=== PATIENT | male | born 1945 | race Caucasian/White ===

== ENCOUNTER 2019-02-19 10:07 | Inpatient (IN) | payer MEDICARE ==
--- NOTE | 2019-02-19 10:31 | ER Document Report ---
ED Medical Screen (RME) - General Chief Complaint: Abnormal Lab Results Stated Complaint: ABNORMAL LABS Time Seen by Provider: 02/19/19 10:28 Primary Care Provider: WHITNEY ASHLEY MD [Primary Care Provider] - Follow up as needed Mode of Arrival: Wheelchair Information source: Patient Notes: 73-year-old male presented to ED for complaint of abnormal lab work. He states his doctor told him to come to the emergency room get vitamin K as his coags were abnormal at the office. He did not bring a copy of his lab results with him but was told to come to the emergency room to get vitamin K. He does have a history of anemia, blood in his urine, and difficulty stopping bleeding. He is on Coumadin. Patient is alert oriented respirations regular and unlabored speaking in full sentences. He is in a wheelchair at this time. I have greeted and performed a rapid initial assessment of this patient. A comprehensive ED assessment and evaluation of the patient, analysis of test results and completion of medical decision making process will be conducted by an additional ED providers. Dictation of this chart was performed using voice recognition software; t herefore, there may be some unintended grammatical errors. TRAVEL OUTSIDE OF THE [place] IN LAST 30 DAYS: No - Related Data Allergies/Adverse Reactions: adhesive Allergy (Mild, Verified 02/19/19 10:12) Sulfa (Sulfonamide Antibiotics) Allergy (Verified 02/19/19 10:12) Past Medical History - Past Medical History Cardiac Medical History: Reports: Hx Heart Attack, Hx Hypercholesterolemia, Hx Hypertension Psychiatric Medical History: Reports: Hx Bipolar Disorder Past Surgical History: Reports: Hx Appendectomy - Immunizations Hx Diphtheria, Pertussis, Tetanus Vaccination: Yes Physical Exam - Vital signs Vitals: Temp Pulse Resp BP Pulse Ox 98.5 F 64 20 96/55 L 98 02/19/19 10:21 02/19/19 10:02/19/19 10:02/19/19 10:21 02/19/19 10:21 Course - Vital Signs Vital signs: Temp Pulse Resp BP Pulse Ox 98.5 F 64 20 96/55 L 98 02/19/19 10:21 02/19/19 10:21 02/19/19 10:21 02/19/19 10:21 02/19/19 10:21 Doctor's Discharge - Discharge Referrals: WHITNEY ASHLEY MD [Primary Care Provider] - Follow up as needed
[2019-02-19 11:07] LABS: ABSOLUTE BASOPHILS # (AUTO) 0.1 10^3/uL (0.0-0.2); ABSOLUTE EOSINOPHILS # (AUTO) 0.3 10^3/uL (0.0-0.6); ABSOLUTE LYMPHOCYTES (AUTO) 0.6 10^3/uL (0.5-4.7); ABSOLUTE MONOCYTES (AUTO) 0.9 10^3/uL (0.1-1.4); ABSOLUTE NEUT (AUTO) 7.2 10^3/uL (1.7-8.2); BASOPHILS % (AUTO) 0.9 % (0-2); EOSINOPHILS % (AUTO) 2.9 % (0-6); HEMATOCRIT 32.8 % (37.9-51.0); HEMOGLOBIN 11.1 g/dL (13.5-17.0); LYMPHOCYTES % (AUTO) 6.8 % (13-45); MEAN CORPUSCULAR HGB CONC 33.8 g/dL (32.0-36.0); MEAN CORPUSCULAR VOLUME 86 fl (80-97); MONOCYTES % (AUTO) 9.9 % (3-13); PLATELET COUNT 110 10^3/uL (150-450); RED BLOOD COUNT 3.82 10^6/uL (4.35-5.55); RED CELL DISTRIBUTION WIDTH 14.9 % (11.5-14.0); SEGMENTED NEUTROPHILS % (AUTO) 79.5 % (42-78); TOTAL CELLS COUNTED % (AUTO) 100 %; WHITE BLOOD COUNT 9.1 10^3/uL (4.0-10.5)
[2019-02-19 11:32] LABS: ALANINE AMINOTRANSFERASE 25 U/L (21-72); ALBUMIN 3.7 g/dL (3.5-5.0); ALKALINE PHOSPHATASE 65 U/L (38-126); ANION GAP 5 (5-19); ASPARTATE AMINO TRANSFERASE 27 U/L (17-59); BILIRUBIN,DIRECT 0.4 mg/dL (0.0-0.4); BLOOD UREA NITROGEN 18 mg/dL (7-20); CALCIUM 9.5 mg/dL (8.4-10.2); CARBON DIOXIDE 28 mmol/L (22-30); CHLORIDE 106 mmol/L (98-107); GLUCOSE 116 mg/dL (75-110); POTASSIUM 4.6 mmol/L (3.6-5.0); SODIUM 138.8 mmol/L (137-145); TOTAL PROTEIN 6.8 g/dL (6.3-8.2)
[2019-02-19 11:50] LABS: PARTIAL THROMBOPLASTIN TIME 168.3 SEC (23.5-35.8); PROTHROMBIN TIME > 120.0 SEC (11.4-15.4)
[2019-02-19 12:18] LABS: APPEARANCE,URINE CLOUDY; BILIRUBIN,URINE NEGATIVE (NEGATIVE); COLOR,URINE RED; GLUCOSE, URINE NEGATIVE (NEGATIVE); KETONES,URINE NEGATIVE (NEGATIVE); LEUKOCYTE ESTERASE,URINE NEGATIVE (NEGATIVE); NITRITE,URINE NEGATIVE (NEGATIVE); PROTEIN,URINE 100 mg/dL (NEGATIVE); URINE SPECIFIC GRAVITY 1.011; UROBILINOGEN,URINE NEGATIVE mg/dL (<2.0)
[2019-02-19] MEDS ORDERED: ACETAMINOPHEN 650 MG SUPP.RECT PR PRN (14:04)
[2019-02-19] MEDS ORDERED: ONDANSETRON HCL INJ/PF 4 MG/2 ML SDV IV PRN (14:04)
[2019-02-19] MEDS ORDERED: NORMAL SALINE 250 ML IV PRN ×2 (14:09)
--- NOTE | 2019-02-19 14:22 | PDOC H&P ---
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 Blood draw was done at his primary care physician yesterday and is continued to bleed from there and the PCP called him back told him they unable to make sure the INR and he was advised to come to the emergency room for further evaluation. He denies any passing blood in the stool. He denies any hematemesis. Denies any chest pains or palpitations. Last dose of warfarin was taken last night. Past Medical History Cardiac Medical History: Reports: Myocardial Infarction, Hyperlipidema, Hyperten christian, Other - History of pacemaker Psychiatric Medical History: Reports: Bipolar Disorder Past Surgical History Past Surgical History: Reports: Appendectomy Social History Information Source: Patient Smoking Status: Unknown if Ever Smoked Frequency of Alcohol Use: None Hx Recreational Drug Use: No Hx Prescription Drug Abuse: No - Advance Directive Resuscitation Status: Full Code Family History Family History: Reviewed & Not Pertinent Parental Family History Reviewed: Yes - Family history of heart disease Children Family History Reviewed: Yes Sibling(s) Family History Reviewed.: Yes Medication/Allergy Home Medications: Aspirin [Ecotrin 325 mg EC Tablet] 325 mg PO DAILY #30 tabec 04/11/14 Bumetanide [Bumex 1 mg Tablet] 1 mg PO DAILY #30 tablet 04/11/14 Carvedilol [Coreg 3.125 mg Tablet] 3.125 mg PO Q12 #60 tablet 04/11/14 Potassium Chloride [Klor-Con 10 Meq Capsule ER] 20 meq PO DAILY #30 tablet.sa 04/11/14 Hydrocodone Bit/Acetaminophen [Hydrocodon-Acetaminophen 5-325] 1 each PO ASDIR PRN #15 tablet 06/03/15 Allergies/Adverse Reactions: adhesive Allergy (Mild, Verified 02/19/19 10:12) Sulfa (Sulfonamide Antibiotics) Allergy (Verified 02/19/19 10:12) Review of Systems Constitutional: ABSENT: fatigue, fever(s), headache(s), night sweats, weakness Eyes: ABSENT: visual disturbances Ears: ABSENT: hearing changes Nose, Mouth, and Throat: ABSENT: sore throat Cardiovascular: ABSENT: dyspnea on exertion, orthropnea, palpitations Respiratory: ABSENT: cough, hemoptysis, sputum Gastrointestinal: ABSENT: abdominal pain, diarrhea, dysphagia, heartburn, hem atemesis, hematochezia, melena, nausea, vomiting Genitourinary: PRESENT: hematuria Neurological: ABSENT: abnormal gait, abnormal speech, confusion, dizziness, focal weakness, syncope Psychiatric: ABSENT: anxiety, depression, homidical ideation, suicidal ideation Physical Exam Vital Signs: Temp Pulse Resp BP Pulse Ox 98.5 F 64 22 H 108/60 100 02/19/19 10:21 02/19/19 10:21 02/19/19 11:01 02/19/19 11:01 02/19/19 11:01 Intake & Output 02/18/19 02/19/19 02/20/19 06:59 06:59 06:59 Weight 65.7 kg General appearance: PRESENT: no acute distress, thin Head exam: PRESENT: atraumatic Eye exam: PRESENT: PERRLA Ear exam: PRESENT: normal external ear exam Mouth exam: PRESENT: dry mucosa Teeth exam: PRESENT: poor dentation Neck exam: ABSENT: carotid bruit, JVD, lymphadenopathy, thyromegaly Respiratory exam: PRESENT: decreased breath sounds Cardiovascular exam: PRESENT: irregular rhythm, other - Pacemaker present left side of the chest GI/Abdominal exam: PRESENT: normal bowel sounds, soft. ABSENT: distended, guarding, mass, organolmegaly, rebound, tenderness Rectal exam: PRESENT: deferred Extremities exam: PRESENT: full ROM. ABSENT: calf tenderness, clubbing, pedal edema Neurological exam: PRESENT: alert, awake, oriented to person, oriented to place, oriented to time, oriented to situation, CN II-XII grossly intact. ABSENT: motor sensory deficit Psychiatric exam: PRESENT: appropriate affect, normal mood. ABSENT: homicidal ideation, suicidal ideation Results Laboratory Results: 02/19/19 10:55 02/19/19 10:55 02/19/19 02/19/19 02/19/19 10:55 10:55 11:48 WBC 9.1 RBC 3.82 L Hgb 11.1 L Hct 32.8 L MCV 86 MCH 29.0 MCHC 33.8 RDW 14.9 H Plt Count 110 L Seg Neutrophils % 79.5 H Lymphocytes % 6.8 L Monocytes % 9.9 Eosinophils % 2.9 Basophils % 0.9 Absolute Neutrophils 7.2 Absolute Lymphocytes 0.6 Absolute Monocytes 0.9 Absolute Eosinophils 0.3 Absolute Basophils 0.1 Sodium 138.8 Potassium 4.6 Chloride 106 Carbon Dioxide 28 Anion Gap 5 BUN 18 Creatinine 1.26 H Est GFR ( Amer) > 60 Est GFR (Non-Af Amer) 56 L Glucose 116 H Calcium 9.5 Total Bilirubin 2.0 H AST 27 ALT 25 Alkaline Phosphatase 65 Total Protein 6.8 Albumin 3.7 Urine Color RED Urine Appearance CLOUDY Urine pH 7.0 Ur Specific Loco 1.011 Urine Protein 100 H Urine Glucose (UA) NEGATIVE Urine Ketones NEGATIVE Urine Blood LARGE H Urine Nitrite NEGATIVE Ur Leukocyte Esterase NEGATIVE Urine RBC (Auto) >182 Assessment and Plan - Diagnosis (1) Coumadin toxicity Is this a current diagnosis for this admission?: Yes Plan: 02/19/[id number]-wdck-old male on Coumadin 4 mg daily came to the emergency room with complaints of passing tea colored/bright red-colored urine from yesterday. PTT is more than 160. INR is unmeasurable. Hemoglobin is stable around 11.1. Plan to admit him IMCU as an inpatient to give a vitamin K 10 mg grams subcu, and to give her 2 FFP's. To that she recheck PT/INR around 5 PM today. GI prophylaxis was initiated placed on SCDs. Aspiration fall seizure precautions are requested. To watch for the signs of hematuria melena and hematemesis. To hold his at home Coumadin for now. To check PT/INR twice a day for the next 48 hours. (2) Hypertension Is this a current diagnosis for this admission?: No Plan: 02/19/2019-pressure is 108/68 with heart rate is around 74 plan is to continue Coreg at this time. (3) Pacemaker Is this a current diagnosis for this admission?: No Plan: 02/19/2019-patient has a pacemaker placed 5 years ago. According to him it is because the heart muscle was damaged. Patient is a poor historian. Plan to do the twelve-lead EKG. If necessary we are going to get in touch with [facility]. (4) Bipolar 1 disorder, depressed, mild Is this a current diagnosis for this admission?: No Plan: 02/13/2017-patient has history of bipolar disorder once his home medications are verified I am going to renew those medications during the hospital stay. (5) Hematuria Is this a current diagnosis for this admission?: Yes Plan: 02/19/2019-patient with came in with complaints of tea colored urine then became bright red-colored urine from last night. Hematuria most likely secondary to Coumadin toxicity. Urinalysis shows blood is large RBCs more than 182.. - Time Time Spent with patient: 25-34 minutes Medications reviewed and adjusted accordingly: Yes Anticipated discharge: Home
[2019-02-19] MEDS ORDERED: PHYTONADIONE INJ 10 MG/1 ML AMPULE SUBCUT ONE (15:00)
[2019-02-19] MEDS: PANTOPRAZOLE SODIUM 40 MG TABLET.DR PO SCH (17:21)
[2019-02-19 17:39] LABS: CREATINE KINASE MB 1.48 ng/mL (<4.55); TROPONIN I 0.022 ng/mL
[2019-02-19 17:58] LABS: CREATINE KINASE MB 1.05 ng/mL (<4.55); TROPONIN I 0.023 ng/mL
[2019-02-19 18:46] LABS: PROTHROMBIN TIME > 120.0 SEC (11.4-15.4)
[2019-02-19] MEDS ORDERED: PHYTONADIONE 5 MG TABLET PO ONE (19:00)
--- NOTE | 2019-02-19 19:05 | ER Document Report ---
ED General - General Chief Complaint: Abnormal Lab Results Stated Complaint: ABNORMAL LABS Time Seen by Provider: 02/19/19 10:28 Mode of Arrival: Wheelchair Notes: Patient was told to come to this emergency department because his blood thinner was too high and he needed to get vitamin K to counteract that problem. Patient is on Coumadin because he has a pacemaker. Patient only complains of noting what looks like some blood in his urine for the past 3 to 4 days. Denies any rectal bleeding. Has not vomited. Patient is not on any new medications recently. Also, does not change the dosage of his medication or anything else. Denies any abdominal pains. Denies chest pains. Denies significant cough or chest congestion. Denies fever. Patient has a history of t pacemaker. TRAVEL OUTSIDE OF THE [place] IN LAST 30 DAYS: No - Related Data Allergies/Adverse Reactions: adhesive Allergy (Mild, Verified 02/19/19 10:12) Sulfa (Sulfonamide Antibiotics) Allergy (Verified 02/19/19 10:12) Past Medical History - General Information source: Patient - Social History Smoking Status: Unknown if Ever Smoked Chew tobacco use (# tins/day): No Frequency of alcohol use: None Drug Abuse: None Family History: Reviewed & Not Pertinent Patient has suicidal ideation: No Patient has homicidal ideation: No - Past Medical History Cardiac Medical History: Reports: Hx Heart Attack, Hx Hypercholesterolemia, Hx Hypertension, Other - History of pacemaker Psychiatric Medical History: Reports: Hx Bipolar Disorder Past Surgical History: Reports: Hx Appendectomy, Hx Cardiac Surgery - pacemaker - Immunizations Hx Diphtheria, Pertussis, Tetanus Vaccination: Yes Hx Pneumococcal Vaccination: 04/11/14 Review of Systems - Review of Systems Notes: REVIEW OF SYSTEMS: CONSTITUTIONAL : Denies fever. EENT: Denies eye, ear, nose or mouth or throat pain or other symptoms. CARDIOVASCULAR: Denies chest pain. RESPIRATORY: Denies cough, chest congestion, or shortness of breath. GASTROINTESTINAL: Denies abdominal pain or nausea, vomiting, or diarrhea. GENITOURINARY: Denies difficulty or painful urinating, urinary frequency, Only complaining of seeing blood in his urine the last 3 to 4 days.. MUSCULOSKELETAL: Denies back or neck pain. Denies joint pain or swelling. SKIN: Denies rash or skin lesions. Patient has many bruised areas all over his body. No active bleeding noted at this time. NEUROLOGICAL: Denies LOC or altered mental status. Denies headache. Denies sensory loss or motor deficits. ALL OTHER SYSTEMS REVIEWED AND NEGATIVE. Physical Exam - Vital signs Vitals: Temp Pulse Resp BP Pulse Ox 98.5 F 64 20 96/55 L 98 02/19/19 10:21 02/19/19 10:21 02/19/19 10:21 02/19/19 10:21 02/19/19 10:21 Interpretation: Normal Notes: PHYSICAL EXAMINATION: GENERAL: Well-appearing, in no acute distress. No bleeding observed. Except patient's urine culture was positive for blood. HEAD: Atraumatic, normocephalic. EYES: Pupils equal round and reactive to light, extraocular movements intact. ENT: oropharynx clear without exudates. Moist mucous membranes. NECK: Normal range of motion, supple. LUNGS: Breath sounds clear and equal bilaterally. HEART: Regular rate and rhythm without murmurs. ABDOMEN: Soft, nontender. No guarding or rebound. No masses. BACK: No tenderness throughout entire back. EXTREMITIES: Normal range of motion without pain. NEUROLOGICAL: Normal speech, normal gait. Normal sensory, motor, and reflex exams. Awake, alert, and oriented x3. Cranial nerves normal. PSYCH: Normal mood, normal affect. SKIN: Warm, dry, no rashes. Numerous bruised areas over patient's entire body. Course - Vital Signs Vital signs: Temp Pulse Resp BP Pulse Ox 98.1 F 69 16 106/67 96 02/20/19 08:00 02/20/19 08:00 02/20/19 10:10 02/20/19 10:10 02/20/19 10:10 02/19/19 19:08 Patient's blood was so thin that her pro time could not be measured. INR is not calculable. 02/19/19 19:08 Hospitalist called to admit the patient to treat her for her over for anticoagulation. - Laboratory Result Diagrams: 02/20/19 05:18 02/20/19 05:18 Laboratory results interpreted by me: 02/19/19 02/19/19 02/19/19 10:55 10:55 10:55 RBC 3.82 L Hgb 11.1 L Hct 32.8 L RDW 14.9 H Plt Count 110 L Seg Neutrophils % 79.5 H Lymphocytes % 6.8 L PT > 120.0 H* APTT 168.3 H* Creatinine 1.26 H Est GFR (Non-Af Amer) 56 L Glucose 116 H Total Bilirubin 2.0 H Creatine Kinase Urine Protein Urine Blood 02/19/19 02/19/19 10:55 11:48 RBC Hgb Hct RDW Plt Count Seg Neutrophils % Lymphocytes % PT APTT Creatinine Est GFR (Non-Af Amer) Glucose Total Bilirubin Creatine Kinase 206 H Urine Protein 100 H Urine Blood LARGE H Discharge - Discharge Clinical Impression: Excessive anticoagulation, Coumadin toxicity, Abnormal laboratory test result Condition: Stable Disposition: ADMITTED INPATIENT Admitting Provider: Magali (Hospitalist)
--- NOTE | 2019-02-19 23:00 | EKG REPORT ---
SEVERITY:- ABNORMAL ECG - A-V DUAL-PACED RHYTHM WITH SOME INHIBITION : Confirmed by: Brenton Phelps 19-Feb-2019 22:58:55
[2019-02-20] MEDS ORDERED: PHYTONADIONE 5 MG TABLET PO ONE (00:45)
[2019-02-20] MEDS ORDERED: PHYTONADIONE 5 MG TABLET ONE (01:02)
[2019-02-20 01:43] LABS: CREATINE KINASE MB 0.79 ng/mL (<4.55); TROPONIN I 0.025 ng/mL
[2019-02-20] MEDS: PANTOPRAZOLE SODIUM 40 MG TABLET.DR PO SCH ×2 (05:57→17:23)
[2019-02-20 06:03] LABS: ABSOLUTE BASOPHILS # (AUTO) 0.1 10^3/uL (0.0-0.2); ABSOLUTE EOSINOPHILS # (AUTO) 0.4 10^3/uL (0.0-0.6); ABSOLUTE LYMPHOCYTES (AUTO) 1.2 10^3/uL (0.5-4.7); ABSOLUTE MONOCYTES (AUTO) 0.9 10^3/uL (0.1-1.4); ABSOLUTE NEUT (AUTO) 5.9 10^3/uL (1.7-8.2); BASOPHILS % (AUTO) 0.7 % (0-2); EOSINOPHILS % (AUTO) 4.2 % (0-6); HEMATOCRIT 27.1 % (37.9-51.0); LYMPHOCYTES % (AUTO) 13.9 % (13-45); MEAN CORPUSCULAR HEMOGLOBIN 28.5 pg (27.0-33.4); MEAN CORPUSCULAR HGB CONC 33.3 g/dL (32.0-36.0); MEAN CORPUSCULAR VOLUME 86 fl (80-97); MONOCYTES % (AUTO) 11.2 % (3-13); RED BLOOD COUNT 3.16 10^6/uL (4.35-5.55); RED CELL DISTRIBUTION WIDTH 14.8 % (11.5-14.0); TOTAL CELLS COUNTED % (AUTO) 100 %; WHITE BLOOD COUNT 8.5 10^3/uL (4.0-10.5)
[2019-02-20 06:21] LABS: PARTIAL THROMBOPLASTIN TIME 83.7 SEC (23.5-35.8)
[2019-02-20 06:24] LABS: ALANINE AMINOTRANSFERASE 22 U/L (21-72); ALBUMIN 2.8 g/dL (3.5-5.0); ALKALINE PHOSPHATASE 43 U/L (38-126); ANION GAP 6 (5-19); ASPARTATE AMINO TRANSFERASE 19 U/L (17-59); BILIRUBIN,DIRECT 0.3 mg/dL (0.0-0.4); BILIRUBIN,TOTAL 2.1 mg/dL (0.2-1.3); BLOOD UREA NITROGEN 16 mg/dL (7-20); CALCIUM 8.6 mg/dL (8.4-10.2); CARBON DIOXIDE 25 mmol/L (22-30); CHLORIDE 107 mmol/L (98-107); CHOLESTEROL 110.93 mg/dL (0-200); GLUCOSE 93 mg/dL (75-110); POTASSIUM 4.2 mmol/L (3.6-5.0); SODIUM 137.5 mmol/L (137-145); TOTAL PROTEIN 5.3 g/dL (6.3-8.2); TRIGLYCERIDES 64 mg/dL (<150)
[2019-02-20 06:30] LABS: INTERNATIONAL RATION (INR) 4.02
[2019-02-20 06:35] LABS: DIRECT LDL 74 mg/dL (<100)
[2019-02-20 06:55] LABS: PROTHROMBIN TIME 40.1 SEC (11.4-15.4)
[2019-02-20 07:12] LABS: PLATELET COUNT 97 10^3/uL (150-450)
[2019-02-21 03:52] LABS: HEMATOCRIT 28.1 % (37.9-51.0); HEMOGLOBIN 9.6 g/dL (13.5-17.0); MEAN CORPUSCULAR HEMOGLOBIN 29.3 pg (27.0-33.4); MEAN CORPUSCULAR VOLUME 86 fl (80-97); PLATELET COUNT 104 10^3/uL (150-450); RED BLOOD COUNT 3.26 10^6/uL (4.35-5.55); RED CELL DISTRIBUTION WIDTH 14.9 % (11.5-14.0)
[2019-02-21 03:58] LABS: INTERNATIONAL RATION (INR) 2.52; PROTHROMBIN TIME 27.7 SEC (11.4-15.4)
[2019-02-21 03:59] LABS: PARTIAL THROMBOPLASTIN TIME 66.8 SEC (23.5-35.8)
[2019-02-21 04:12] LABS: ANION GAP 7 (5-19); BLOOD UREA NITROGEN 15 mg/dL (7-20); CALCIUM 8.7 mg/dL (8.4-10.2); CARBON DIOXIDE 24 mmol/L (22-30); CHLORIDE 106 mmol/L (98-107); GLUCOSE 116 mg/dL (75-110); POTASSIUM 4.2 mmol/L (3.6-5.0)
[2019-02-21] MEDS: PANTOPRAZOLE SODIUM 40 MG TABLET.DR PO SCH ×2 (05:02→18:23)
--- NOTE | 2019-02-21 06:35 | PDOC PROGRESS REPORT ---
Subjective Progress Note for:: 02/20/19 Subjective:: Patient is feeling better. Still with large ecchymotic areas on shoulder and arms. Reason For Visit: COUMADIN TOXICITY Physical Exam Vital Signs: Temp Pulse Resp BP Pulse Ox 97.8 F 72 25 H 100/86 H 98 02/20/19 12:00 02/20/19 12:00 02/20/19 12:00 02/20/19 12:00 02/20/19 12:00 Intake & Output 02/19/19 02/20/19 02/21/19 06:59 06:59 06:59 Intake Total 888 Output Total 620 550 Balance 268 -550 Weight 64.5 kg General appearance: PRESENT: no acute distress, cooperative, well-developed Head exam: PRESENT: atraumatic, normocephalic Eye exam: PRESENT: conjunctiva pink. ABSENT: scleral icterus Ear exam: PRESENT: normal external ear exam Mouth exam: PRESENT: dry mucosa, tongue midline Respiratory exam: PRESENT: clear to auscultation [place], symmetrical, unlabored. ABSENT: rales, rhonchi, tachypnea, wheezes Cardiovascular exam: PRESENT: RRR, +S1, +S2. ABSENT: diastolic murmur, systolic murmur GI/Abdominal exam: PRESENT: normal bowel sounds, soft. ABSENT: distended, tenderness Rectal exam: PRESENT: deferred Gentrourinary exam: ABSENT: indwelling catheter Extremities exam: PRESENT: pedal edema. ABSENT: calf tenderness Musculoskeletal exam: PRESENT: ambulatory Neurological exam: PRESENT: alert, awake, oriented to person, oriented to place, oriented to time, oriented to situation, CN II-XII grossly intact Psychiatric exam: PRESENT: flat affect. ABSENT: agitated, anxious Focused psych exam: ABSENT: delusional, restlessness Results Laboratory Results: 02/20/19 05:18 02/20/19 05:18 02/19/19 02/20/19 02/20/19 14:45 05:18 05:18 WBC 8.5 RBC 3.16 L Hgb 9.0 L D Hct 27.1 L MCV 86 MCH 28.5 MCHC 33.3 RDW 14.8 H Plt Count 97 L Seg Neutrophils % 70.0 Lymphocytes % 13.9 Monocytes % 11.2 Eosinophils % 4.2 Basophils % 0.7 Absolute Neutrophils 5.9 Absolute Lymphocytes 1.2 Absolute Monocytes 0.9 Absolute Eosinophils 0.4 Absolute Basophils 0.1 Sodium 137.5 Potassium 4.2 Chloride 107 Carbon Dioxide 25 Anion Gap 6 BUN 16 Creatinine 1.06 Est GFR ( Amer) > 60 Est GFR (Non-Af Amer) > 60 Glucose 93 Calcium 8.6 Magnesium 1.5 L Total Bilirubin 2.1 H AST 19 ALT 22 Alkaline Phosphatase 43 Total Protein 5.3 L Albumin 2.8 L Triglycerides 64 Cholesterol 110.93 LDL Cholesterol Direct 74 VLDL Cholesterol 13.0 HDL Cholesterol 36 L TSH Blood Type O POSITIVE 02/20/19 05:18 WBC RBC Hgb Hct MCV MCH MCHC RDW Plt Count Seg Neutrophils % Lymphocytes % Monocytes % Eosinophils % Basophils % Absolute Neutrophils Absolute Lymphocytes Absolute Monocytes Absolute Eosinophils Absolute Basophils Sodium Potassium Chloride Carbon Dioxide Anion Gap BUN Creatinine Est GFR ( Amer) Est GFR (Non-Af Amer) Glucose Calcium Magnesium Total Bilirubin AST ALT Alkaline Phosphatase Total Protein Albumin Triglycerides Cholesterol LDL Cholesterol Direct VLDL Cholesterol HDL Cholesterol TSH 1.29 Blood Type 02/19/19 02/19/19 02/19/19 10:55 10:55 17:12 Creatine Kinase 206 H 136 CK-MB (CK-2) 1.48 Troponin I 0.022 NT-Pro-B Natriuret Pep 02/19/19 02/20/19 02/20/19 17:12 01:07 01:07 Creatine Kinase 109 CK-MB (CK-2) 1.05 0.79 Troponin I 0.023 0.025 NT-Pro-B Natriuret Pep 02/20/19 05:18 Creatine Kinase CK-MB (CK-2) Troponin I NT-Pro-B Natriuret Pep 5890 H Assessment and Plan - Diagnosis (1) Coumadin toxicity Is this a current diagnosis for this admission?: Yes Plan: 02/19/[id number]-yfns-old male on Coumadin 4 mg daily came to the emergency room with complaints of passing tea colored/bright red-colored urine from yesterday. PTT is more than 160. INR is unmeasurable. Hemoglobin is stable around 11.1. Plan to admit him IMCU as an inpatient to give a vitamin K 10 mg grams subcu, and to give her 2 FFP's. To that she recheck PT/INR around 5 PM today. GI prophylaxis was initiated placed on SCDs. Aspiration fall seizure precautions are requested. To watch for the signs of hematuria melena and hematemesis. To hold his at home Coumadin for now. To check PT/INR twice a day for the next 48 hours. 02/20/2019-after our multidisciplinary rounds this morning I will pharmacy contacted the patient's primary provider who monitors the Coumadin. They state that the patient has labile INR results. This could be due to a compliance issue. His INR is improved after fresh frozen plasma. At this point I do not feel that he needs additional fresh frozen plasma. Based on his INR he may or may not be started back on warfarin prior to discharge but I did ask the staff to make an appointment with his primary care provider for Saturday or Saturday. (2) Excessive anticoagulation Is this a current diagnosis for this admission?: Yes Plan: 02/12/2019-it is unclear if there was a dosing error since the patient has different strength tablets of the warfarin at home. With this episode, he might benefit from home health to monitor the warfarin dosing for the first week or 2 after discharge. (3) Hypomagnesemia Is this a current diagnosis for this admission?: Yes Plan: 02/20/2019-replete serum magnesium. (4) Hypercholesterolemia Is this a current diagnosis for this admission?: Yes Plan: 02/20/2019-continue atorvastatin - Time Time Spent with patient: 15-24 minutes Medications reviewed and adjusted accordingly: Yes Anticipated discharge: Home
[2019-02-21] MEDS: MAGNESIUM SULFATE/D5W 1 GM/100 ML RTUPB IV SCH ×2 (09:23→11:43)
[2019-02-21] MEDS ORDERED: MAGNESIUM OXIDE 400 MG TABLET PO SCH ×2 (10:00→18:00)
[2019-02-21] MEDS ORDERED: CARVEDILOL 12.5 MG TABLET PO SCH (10:00)
[2019-02-21] MEDS ORDERED: MAGNESIUM SULFATE/D5W 1 GM/100 ML RTUPB IV ONE (11:41)
--- NOTE | 2019-02-21 16:32 | PDOC PROGRESS REPORT ---
Subjective Progress Note for:: 02/21/19 Subjective:: The patient's son Arik is present in the room. He is the power of commercial attorney and has a copy of the documents. Reason For Visit: COUMADIN TOXICITY Physical Exam Vital Signs: Temp Pulse Resp BP Pulse Ox 98.4 F 91 16 128/82 H 99 02/21/19 14:11 02/21/19 07:46 02/21/19 14:11 02/21/19 14:11 02/21/19 14:11 Intake & Output 02/20/19 02/21/19 02/22/19 06:59 06:59 06:59 Intake Total 888 1775 100 Output Total 620 1050 Balance 268 725 100 Weight 64.5 kg 66.9 kg General appearance: PRESENT: no acute distress, cooperative, well-developed Head exam: PRESENT: atraumatic, normocephalic Eye exam: PRESENT: conjunctiva pink. ABSENT: scleral icterus Ear exam: PRESENT: normal external ear exam Mouth exam: PRESENT: dry mucosa, tongue midline Respiratory exam: PRESENT: clear to auscultation [place], symmetrical, unlabored. ABSENT: rales, rhonchi, tachypnea, wheezes Cardiovascular exam: PRESENT: irregular rhythm - Underlying paced rhythm with irregular beats GI/Abdominal exam: PRESENT: normal bowel sounds, soft. ABSENT: distended, tenderness Rectal exam: PRESENT: deferred Gentrourinary exam: PRESENT: other - Still with tea colored urine Extremities exam: ABSENT: calf tenderness, pedal edema Musculoskeletal exam: PRESENT: normal inspection Neurological exam: PRESENT: alert, awake, oriented to person, oriented to place, oriented to situation Psychiatric exam: PRESENT: flat affect. ABSENT: agitated, anxious Focused psych exam: ABSENT: delusional, restlessness Skin exam: PRESENT: other - Ecchymotic lesions Results Laboratory Results: 02/21/19 03:29 02/21/19 03:29 02/21/19 02/21/19 03:29 03:29 WBC 11.0 H RBC 3.26 L Hgb 9.6 L Hct 28.1 L MCV 86 MCH 29.3 MCHC 34.0 RDW 14.9 H Plt Count 104 L Sodium 137.0 Potassium 4.2 Chloride 106 Carbon Dioxide 24 Anion Gap 7 BUN 15 Creatinine 0.91 Est GFR ( Amer) > 60 Est GFR (Non-Af Amer) > 60 Glucose 116 H Calcium 8.7 Magnesium 1.4 L 02/19/19 02/19/19 02/19/19 10:55 10:55 17:12 Creatine Kinase 206 H 136 CK-MB (CK-2) 1.48 Troponin I 0.022 NT-Pro-B Natriuret Pep 02/19/19 02/20/19 02/20/19 17:12 01:07 01:07 Creatine Kinase 109 CK-MB (CK-2) 1.05 0.79 Troponin I 0.023 0.025 NT-Pro-B Natriuret Pep 02/20/19 05:18 Creatine Kinase CK-MB (CK-2) Troponin I NT-Pro-B Natriuret Pep 5890 H Assessment and Plan - Diagnosis (1) Coumadin toxicity Is this a current diagnosis for this admission?: Yes Plan: [birth year][id number]-mdhj-old male on Coumadin 4 mg daily came to the emergency room with complaints of passing tea colored/bright red-colored urine from yesterday. PTT is more than 160. INR is unmeasurable. Hemoglobin is stable around 11.1. Plan to admit him IMCU as an inpatient to give a vitamin K 10 mg grams subcu, and to give her 2 FFP's. To that she recheck PT/INR around 5 PM today. GI prophylaxis was initiated placed on SCDs. Aspiration fall seizure precautions are requested. To watch for the signs of hematuria melena and hematemesis. To hold his at home Coumadin for now. To check PT/INR twice a day for the next 48 hours. 02/20/2019-after our multidisciplinary rounds this morning I will pharmacy contacted the patient's primary provider who monitors the Coumadin. They state that the patient has labile INR results. This could be due to a compliance issue. His INR is improved after fresh frozen plasma. At this point I do not feel that he needs additional fresh frozen plasma. Based on his INR he may or may not be started back on warfarin prior to discharge but I did ask the staff to make an appointment with his primary care provider for Saturday or Saturday. 02/21/2019-his INR is under 3. Because he has vitamin K on board I will resume warfarin at 3 mg daily. We will take at least several days before it should have full effect. We will continue to monitor his urine and stool for blood as well as his hemoglobin. He may need home health to help monitor medications or [facility]. We will obtain a PT consult. (2) Excessive anticoagulation Is this a current diagnosis for this admission?: Yes Plan: 02/20/2019-it is unclear if there was a dosing error since the patient has different strength tablets of the warfarin at home. With this episode, he might benefit from home health to monitor the warfarin dosing for the first week or 2 after discharge. 02/21/2019-INR is back in the therapeutic range. Most likely scenario is that the patient accidentally took too much Coumadin. It appears that he is still clearing old blood from his kidneys. (3) Hypomagnesemia Is this a current diagnosis for this admission?: Yes Plan: 02/20/2019-replete serum magnesium. Despite starting magnesium oxide. Serum magnesium is still low. Will give magnesium sulfate by IV and then increase the magnesium oxide dosing to twice daily. (4) Hypercholesterolemia Is this a current diagnosis for this admission?: Yes Plan: 02/20/2019-continue atorvastatin 02/21/2019-no change in the treatment plan. - Time Time Spent with patient: 15-24 minutes Medications reviewed and adjusted accordingly: Yes Anticipated discharge: Other - Unsure at this time. He may require skilled facility short-term.
[2019-02-21] MEDS ORDERED: MAGNESIUM SULFATE/D5W 1 GM/100 ML RTUPB IV SCH (17:00)
[2019-02-21] MEDS: ATORVASTATIN CALCIUM 10 MG TABLET PO SCH (21:19)
[2019-02-21] MEDS: CARVEDILOL 12.5 MG TABLET PO SCH (21:19)
[2019-02-21] MEDS: WARFARIN SODIUM 3 MG TABLET PO SCH (21:23)
[2019-02-22 03:30] LABS: HEMATOCRIT 29.8 % (37.9-51.0); HEMOGLOBIN 9.9 g/dL (13.5-17.0); MEAN CORPUSCULAR HEMOGLOBIN 28.5 pg (27.0-33.4); MEAN CORPUSCULAR HGB CONC 33.2 g/dL (32.0-36.0); MEAN CORPUSCULAR VOLUME 86 fl (80-97); PLATELET COUNT 127 10^3/uL (150-450); RED BLOOD COUNT 3.48 10^6/uL (4.35-5.55); RED CELL DISTRIBUTION WIDTH 15.1 % (11.5-14.0); WHITE BLOOD COUNT 13.1 10^3/uL (4.0-10.5)
[2019-02-22 03:47] LABS: ANION GAP 8 (5-19); BLOOD UREA NITROGEN 17 mg/dL (7-20); CALCIUM 8.6 mg/dL (8.4-10.2); CARBON DIOXIDE 23 mmol/L (22-30); CHLORIDE 100 mmol/L (98-107); GLUCOSE 111 mg/dL (75-110); SODIUM 131.3 mmol/L (137-145)
[2019-02-22] MEDS: PANTOPRAZOLE SODIUM 40 MG TABLET.DR PO SCH ×2 (05:09→18:10)
[2019-02-22] MEDS: MAGNESIUM SULFATE/D5W 1 GM/100 ML RTUPB IV SCH ×2 (09:00→14:29)
[2019-02-22] MEDS: CARVEDILOL 12.5 MG TABLET PO SCH ×2 (09:10→21:06)
[2019-02-22] MEDS: MAGNESIUM OXIDE 400 MG TABLET PO SCH ×3 (09:10→18:10)
[2019-02-22] MEDS ORDERED: MAGNESIUM SULFATE/D5W 1 GM/100 ML RTUPB IV ONE (14:26)
[2019-02-22] MEDS: ATORVASTATIN CALCIUM 10 MG TABLET PO SCH (21:05)
[2019-02-22] MEDS: WARFARIN SODIUM 3 MG TABLET PO SCH (21:06)
--- NOTE | 2019-02-22 21:09 | PDOC PROGRESS REPORT ---
Subjective Progress Note for:: 02/22/19 Subjective:: The patient is resting in bed. He is in no distress. Reason For Visit: COUMADIN TOXICITY Physical Exam Vital Signs: Temp Pulse Resp BP Pulse Ox 98.4 F 77 28 H 112/83 99 02/22/19 03:46 02/22/19 07:47 02/22/19 10:00 02/22/19 03:46 02/22/19 10:00 Intake & Output 02/21/19 02/22/19 02/23/19 06:59 06:59 06:59 Intake Total 1775 2950 100 Output Total 1050 925 Balance 725 2025 100 Weight 66.9 kg 70.2 kg General appearance: PRESENT: no acute distress, well-developed Head exam: PRESENT: atraumatic, normocephalic Eye exam: PRESENT: scleral icterus. ABSENT: conjunctival injection Ear exam: PRESENT: normal external ear exam Respiratory exam: PRESENT: clear to auscultation [place], symmetrical, unlabored. ABSENT: rales, rhonchi, tachypnea, wheezes Cardiovascular exam: PRESENT: irregular rhythm GI/Abdominal exam: PRESENT: normal bowel sounds, soft. ABSENT: distended, guarding, tenderness Rectal exam: PRESENT: deferred Gentrourinary exam: PRESENT: other - Urine still darkly discolored. ABSENT: indwelling catheter Musculoskeletal exam: PRESENT: normal inspection Neurological exam: PRESENT: alert, awake, oriented to person, oriented to place, oriented to situation Psychiatric exam: PRESENT: flat affect. ABSENT: agitated, anxious Focused psych exam: ABSENT: delusional, restlessness Skin exam: PRESENT: other - Very thin skin with ecchymotic lesions upper extremities Results Laboratory Results: 02/22/19 03:11 02/22/19 03:11 02/22/19 02/22/19 03:11 03:11 WBC 13.1 H RBC 3.48 L Hgb 9.9 L Hct 29.8 L MCV 86 MCH 28.5 MCHC 33.2 RDW 15.1 H Plt Count 127 L Sodium 131.3 L Potassium 4.0 Chloride 100 Carbon Dioxide 23 Anion Gap 8 BUN 17 Creatinine 0.94 Est GFR ( Amer) > 60 Est GFR (Non-Af Amer) > 60 Glucose 111 H Calcium 8.6 Magnesium 1.5 L 02/19/19 02/19/1919 10:55 10:55 17:12 Creatine Kinase 206 H 136 CK-MB (CK-2) 1.48 Troponin I 0.022 NT-Pro-B Natriuret Pep 02/19/19 02/20/19 02/20/19 17:12 01:07 01:07 Creatine Kinase 109 CK-MB (CK-2) 1.05 0.79 Troponin I 0.023 0.025 NT-Pro-B Natriuret Pep 02/20/19 05:18 Creatine Kinase CK-MB (CK-2) Troponin I NT-Pro-B Natriuret Pep 5890 H Assessment and Plan - Diagnosis (1) Coumadin toxicity Is this a current diagnosis for this admission?: Yes Plan: [birth year]/19/[id number]-lxnw-old male on Coumadin 4 mg daily came to the emergency room with complaints of passing tea colored/bright red-colored urine from yesterday. PTT is more than 160. INR is unmeasurable. Hemoglobin is stable around 11.1. Plan to admit him IMCU as an inpatient to give a vitamin K 10 mg grams subcu, and to give her 2 FFP's. To that she recheck PT/INR around 5 PM today. GI prophylaxis was initiated placed on SCDs. Aspiration fall seizure precautions are requested. To watch for the signs of hematuria melena and hematemesis. To hold his at home Coumadin for now. To check PT/INR twice a day for the next 48 hours. 02/20/2019-after our multidisciplinary rounds this morning I will pharmacy contacted the patient's primary provider who monitors the Coumadin. They state that the patient has labile INR results. This could be due to a compliance issue. His INR is improved after fresh frozen plasma. At this point I do not feel that he needs additional fresh frozen plasma. Based on his INR he may or may not be started back on warfarin prior to discharge but I did ask the staff to make an appointment with his primary care provider for Saturday or Saturday. 02/21/2019-his INR is under 3. Because he has vitamin K on board I will resume warfarin at 3 mg daily. We will take at least several days before it should have full effect. We will continue to monitor his urine and stool for blood as well as his hemoglobin. He may need home health to help monitor medications or longterm. We will obtain a PT consult. 02/22/2019-Coumadin will be restarted today. Will monitor closely for worsening of any bleeding. INR is back to the therapeutic range. The vitamin K may still be having effects and so I am starting him back on warfarin at a smaller dose than he was supposed to be on. This can be increased based on the INR or discontinued if there is bleeding. (2) Excessive anticoagulation Is this a current diagnosis for this admission?: Yes Plan: 02/20/2019-it is unclear if there was a dosing error since the patient has different strength tablets of the warfarin at home. With this episode, he might benefit from home health to monitor the warfarin dosing for the first week or 2 after discharge. 02/21/2019-INR is back in the therapeutic range. Most likely scenario is that the patient accidentally took too much Coumadin. It appears that he is still clearing old blood from his kidneys. 02/22/2019-resolved (3) Hypomagnesemia Is this a current diagnosis for this admission?: Yes Plan: 02/20/2019-replete serum magnesium. Despite starting magnesium oxide. Serum magnesium is still low. Will give magnesium sulfate by IV and then increase the magnesium oxide dosing to twice daily. 02/22/2019-we will give additional IV magnesium sulfate. Oral magnesium oxide has been increased (4) Hypercholesterolemia Is this a current diagnosis for this admission?: Yes Plan: 02/20/2019-continue atorvastatin 02/21/2019-no change in the treatment plan. - Time Time Spent with patient: 15-24 minutes Medications reviewed and adjusted accordingly: Yes - Plan Summary Plan Summary: The patient will likely need longterm requirement for short-term rehab. He is still quite weak. I have asked that he get out of bed to the chair for meals. Please also see physical therapy notes.
[2019-02-23 04:10] LABS: INTERNATIONAL RATION (INR) 2.44; PROTHROMBIN TIME 26.9 SEC (11.4-15.4)
[2019-02-23 04:24] LABS: ALANINE AMINOTRANSFERASE 23 U/L (21-72); ALBUMIN 2.9 g/dL (3.5-5.0); ALKALINE PHOSPHATASE 45 U/L (38-126); ANION GAP 9 (5-19); ASPARTATE AMINO TRANSFERASE 26 U/L (17-59); BILIRUBIN,DIRECT 0.3 mg/dL (0.0-0.4); BILIRUBIN,TOTAL 2.1 mg/dL (0.2-1.3); BLOOD UREA NITROGEN 34 mg/dL (7-20); CALCIUM 8.6 mg/dL (8.4-10.2); CARBON DIOXIDE 22 mmol/L (22-30); CHLORIDE 98 mmol/L (98-107); GLUCOSE 111 mg/dL (75-110); POTASSIUM 4.1 mmol/L (3.6-5.0); SODIUM 128.8 mmol/L (137-145); TOTAL PROTEIN 5.6 g/dL (6.3-8.2)
[2019-02-23] MEDS: PANTOPRAZOLE SODIUM 40 MG TABLET.DR PO SCH ×2 (05:05→17:19)
[2019-02-23 05:45] LABS: APPEARANCE,URINE CLOUDY; BILIRUBIN,URINE NEGATIVE (NEGATIVE); COLOR,URINE AMBER; GLUCOSE, URINE 50 mg/dL (NEGATIVE); KETONES,URINE NEGATIVE (NEGATIVE); LEUKOCYTE ESTERASE,URINE NEGATIVE (NEGATIVE); NITRITE,URINE NEGATIVE (NEGATIVE); PROTEIN,URINE 100 mg/dL (NEGATIVE); URINE SPECIFIC GRAVITY 1.006; UROBILINOGEN,URINE NEGATIVE mg/dL (<2.0)
[2019-02-23] MEDS: CARVEDILOL 12.5 MG TABLET PO SCH ×2 (09:19→21:49)
[2019-02-23] MEDS: MAGNESIUM OXIDE 400 MG TABLET PO SCH ×3 (09:19→17:19)
[2019-02-23] MEDS: NORMAL SALINE 1000 ML 1,000 ML IV PRN (12:00)
[2019-02-23] MEDS ORDERED: ONDANSETRON HCL INJ/PF 4 MG/2 ML SDV IV PRN (12:30)
--- NOTE | 2019-02-23 21:15 | PDOC PROGRESS REPORT ---
Subjective Progress Note for:: 02/23/19 Subjective:: BUN and creatinine are elevated. Urine is back to dark tea colored. He still has elevated bilirubin. Reason For Visit: COUMADIN TOXICITY Physical Exam Vital Signs: Temp Pulse Resp BP Pulse Ox 97.5 F 71 23 H 113/75 99 02/23/19 08:00 02/23/19 08:10 02/23/19 10:00 02/23/19 08:21 02/23/19 10:00 Intake & Output 02/22/19 02/23/19 02/24/19 06:59 06:59 06:59 Intake Total 2950 1160 200 Output Total 925 730 300 Balance 2024 430 -100 Weight 70.2 kg 69.9 kg General appearance: PRESENT: no acute distress, cooperative, well-developed Head exam: PRESENT: atraumatic, normocephalic Eye exam: PRESENT: conjunctiva pale. ABSENT: scleral icterus Ear exam: PRESENT: normal external ear exam Mouth exam: PRESENT: dry mucosa, tongue midline Neck exam: ABSENT: carotid bruit, JVD, lymphadenopathy Respiratory exam: PRESENT: clear to auscultation [place], symmetrical, unlabored. ABSENT: accessory muscle use, rales, rhonchi, tachypnea, wheezes Cardiovascular exam: PRESENT: RRR, +S1, +S2, systolic murmur - 2/6 GI/Abdominal exam: PRESENT: normal bowel sounds, soft. ABSENT: distended, tenderness Rectal exam: PRESENT: deferred Gentrourinary exam: PRESENT: other - Dark [place]a colored urine Extremities exam: ABSENT: calf tenderness, pedal edema Musculoskeletal exam: PRESENT: normal inspection Neurological exam: PRESENT: alert, awake, oriented to person, oriented to place, oriented to situation Psychiatric exam: PRESENT: flat affect. ABSENT: agitated, anxious Focused psych exam: ABSENT: delusional, restlessness Skin exam: PRESENT: dry, other - Ecchymotic areas on upper extremities. ABSENT: rash Results Laboratory Results: 02/22/19 03:11 02/23/19 03:30 02/23/19 02/23/19 03:30 05:17 Sodium 128.8 L Potassium 4.1 Chloride 98 Carbon Dioxide 22 Anion Gap 9 BUN 34 H Creatinine 1.75 H Est GFR ( Amer) 47 L Est GFR (Non-Af Amer) 39 L Glucose 111 H Calcium 8.6 Magnesium 1.8 Total Bilirubin 2.1 H AST 26 ALT 23 Alkaline Phosphatase 45 Total Protein 5.6 L Albumin 2.9 L Urine Color BELLE Urine Appearance CLOUDY Urine pH 6.0 Ur Specific [employer] 1.006 Urine Protein 100 H Urine Glucose (UA) 50 H Urine Ketones NEGATIVE Urine Blood LARGE H Urine Nitrite NEGATIVE Ur Leukocyte Esterase NEGATIVE Urine WBC (Auto) 20 Urine RBC (Auto) 73 02/19/19 02/19/19 02/19/19 10:55 10:55 17:12 Creatine Kinase 206 H 136 CK-MB (CK-2) 1.48 Troponin I 0.022 NT-Pro-B Natriuret Pep 02/19/19 02/20/19 02/20/19 17:12 01:07 01:07 Creatine Kinase 109 CK-MB (CK-2) 1.05 0.79 Troponin I 0.023 0.025 NT-Pro-B Natriuret Pep 02/20/19 05:18 Creatine Kinase CK-MB (CK-2) Troponin I NT-Pro-B Natriuret Pep 5890 H Assessment and Plan - Diagnosis (1) Coumadin toxicity Is this a current diagnosis for this admission?: Yes Plan: 02/19/[id number]-uruu-old male on Coumadin 4 mg daily came to the emergency room with complaints of passing tea colored/bright red-colored urine from yesterday. PTT is more than 160. INR is unmeasurable. Hemoglobin is stable around 11.1. Plan to admit him IMCU as an inpatient to give a vitamin K 10 mg grams subcu, and to give her 2 FFP's. To that she recheck PT/INR around 5 PM today. GI prophylaxis was initiated placed on SCDs. Aspiration fall seizure precautions are requested. To watch for the signs of hematuria melena and hematemesis. To hold his at home Coumadin for now. To check PT/INR twice a day for the next 48 hours. 02/20/2019-after our multidisciplinary rounds this morning I will pharmacy contacted the patient's primary provider who monitors the Coumadin. They state that the patient has labile INR results. This could be due to a compliance issue. His INR is improved after fresh frozen plasma. At this point I do not feel that he needs additional fresh frozen plasma. Based on his INR he may or may not be started back on warfarin prior to discharge but I did ask the staff to make an appointment with his primary care provider for Saturday or Saturday. 02/21/2019-his INR is under 3. Because he has vitamin K on board I will resume warfarin at 3 mg daily. We will take at least several days before it should have full effect. We will continue to monitor his urine and stool for blood as well as his hemoglobin. He may need home health to help monitor medications or retirement. We will obtain a PT consult. 02/22/2019-Coumadin will be restarted today. Will monitor closely for worsening of any bleeding. INR is back to the therapeutic range. The vitamin K may still be having effects and so I am starting him back on warfarin at a smaller dose than he was supposed to be on. This can be increased based on the INR or discontinued if there is bleeding. 02/23/2019-the patient's INR is in the low therapeutic range. I did resume warfarin at 3 mg which is lower than his prehospitalization prescribed dose. The patient's INR today was 2.4. His hematuria has returned. We will therefore discontinue all anticoagulation. At this point the risk of bleeding outweighs the benefit of anticoagulation. (2) Excessive anticoagulation Is this a current diagnosis for this admission?: Yes Plan: 02/20/2019-it is unclear if there was a dosing error since the patient has different strength tablets of the warfarin at home. With this episode, he might benefit from home health to monitor the warfarin dosing for the first week or 2 after discharge. 02/21/2019-INR is back in the therapeutic range. Most likely scenario is that the patient accidentally took too much Coumadin. It appears that he is still clearing old blood from his kidneys. 02/22/2019-resolved 02/23/2019-as noted above the INR was back in the normal therapeutic range. Bleeding complicated this. He will be discontinued on oral anticoagulants. Once the hematuria stopped consideration can be given to newer agents that do not require titration of dose however his fall risk and poor insight into his health make administration of these types of medications very risky. (3) Hypomagnesemia Is this a current diagnosis for this admission?: Yes Plan: 02/20/2019-replete serum magnesium. Despite starting magnesium oxide. Serum magnesium is still low. Will give magnesium sulfate by IV and then increase the magnesium oxide dosing to twice daily. 02/22/2019-we will give additional IV magnesium sulfate. Oral magnesium oxide has been increased 02/23/2019-the patient's serum magnesium is finally in the normal range. Continue current supplement of magnesium oxide 400 mg 3 times a day. (4) Hypercholesterolemia Is this a current diagnosis for this admission?: Yes Plan: 02/20/2019-continue atorvastatin 02/21/2019-no change in the treatment plan. 02/23/2019-continue statin therapy (5) Acute kidney injury Is this a current diagnosis for this admission?: Yes Plan: 02/23/2019-the patient's BUN and creatinine were markedly increased from yesterday. His serum creatinine kinase levels have not been elevated thereby ruling out rhabdo. We did stop IV fluid but I do not believe he is able to consume enough fluids by mouth and therefore I will resume IV fluids. We will continue to monitor his renal function and adjust fluids as well as encouraging oral intake to correct his renal function. - Time Time Spent with patient: 15-24 minutes Medications reviewed and adjusted accordingly: Yes Anticipated discharge: SNF - With likely eventual long-term care
[2019-02-23] MEDS: ATORVASTATIN CALCIUM 10 MG TABLET PO SCH (21:49)
[2019-02-24] MEDS: NORMAL SALINE 1000 ML 1,000 ML IV PRN ×4 (02:09→22:54)
[2019-02-24] MEDS: PANTOPRAZOLE SODIUM 40 MG TABLET.DR PO SCH ×2 (05:52→17:18)
[2019-02-24 06:56] LABS: ALBUMIN 2.7 g/dL (3.5-5.0); ANION GAP 10 (5-19); BLOOD UREA NITROGEN 52 mg/dL (7-20); CALCIUM 8.1 mg/dL (8.4-10.2); CARBON DIOXIDE 21 mmol/L (22-30); CHLORIDE 96 mmol/L (98-107); CREATINE KINASE 37 U/L (55-170); GLUCOSE 133 mg/dL (75-110); POTASSIUM 4.4 mmol/L (3.6-5.0); SODIUM 126.5 mmol/L (137-145)
[2019-02-24] MEDS: MAGNESIUM OXIDE 400 MG TABLET PO SCH ×3 (09:49→17:18)
[2019-02-24] MEDS: CARVEDILOL 12.5 MG TABLET PO SCH ×2 (09:49→21:34)
--- NOTE | 2019-02-24 17:11 | PDOC PROGRESS REPORT ---
Subjective Progress Note for:: 02/24/19 Subjective:: This is 73 years old male patient was past medical history of hypertension, hyperlipidemia, history of myocardial infarction and coronary artery disease and status post pacemaker placement presented with chief complaint of "tea colored urine". Patient has been on Coumadin. His INR reported unmeasurable and his latest INR is 2.44. This morning patient seen sitting up in bed. He does not have new complaint. Reason For Visit: COUMADIN TOXICITY Physical Exam Vital Signs: Temp Pulse Resp BP Pulse Ox 97.5 F 82 18 108/75 99 02/24/19 12:35 02/24/19 14:00 02/24/19 12:35 02/24/19 12:35 02/24/19 12:35 Intake & Output 02/23/19 02/24/19 02/25/19 06:59 06:59 06:59 Intake Total 1160 1840 1000 Output Total 730 1150 Balance 610 603 5062 Weight 69.9 kg 75.7 kg General appearance: PRESENT: no acute distress Head exam: PRESENT: atraumatic Neck exam: ABSENT: carotid bruit, JVD, lymphadenopathy, thyromegaly Respiratory exam: PRESENT: clear to auscultation [place]. ABSENT: rales, rhonchi, wheezes GI/Abdominal exam: PRESENT: normal bowel sounds, soft. ABSENT: distended, guarding, mass, organolmegaly, rebound, tenderness Results Laboratory Results: 02/22/19 03:11 02/24/19 06:06 02/24/19 06:06 Sodium 126.5 L Potassium 4.4 Chloride 96 L Carbon Dioxide 21 L Anion Gap 10 BUN 52 H Creatinine 2.67 H Est GFR ( Amer) 29 L Est GFR (Non-Af Amer) 24 L Glucose 133 H Calcium 8.1 L Magnesium 2.0 Albumin 2.7 L 02/19/19 02/19/19 02/19/19 10:55 10:55 17:12 Creatine Kinase 206 H 136 CK-MB (CK-2) 1.48 Troponin I 0.022 NT-Pro-B Natriuret Pep 02/19/19 02/20/19 02/20/19 17:12 01:07 01:07 Creatine Kinase 109 CK-MB (CK-2) 1.05 0.79 Troponin I 0.023 0.025 NT-Pro-B Natriuret Pep 02/20/19 02/24/19 05:18 06:06 Creatine Kinase 37 L CK-MB (CK-2) Troponin I NT-Pro-B Natriuret Pep 5890 H Assessment and Plan - Diagnosis (1) Hematuria Is this a current diagnosis for this admission?: Yes Plan: Resolved. (2) Coumadin toxicity Qualifiers: Encounter type: initial encounter Is this a current diagnosis for this admission?: Yes Plan: On admission his INR is unmeasurable to day it is 2.44. I will consult Dr. Rojas for his input regarding to resume or stop his Coumadin. (3) Coronary artery disease Qualifiers: Coronary Disease-Associated Artery/Lesion type: [place] artery Is this a current diagnosis for this admission?: Yes Plan: No anginal symptoms (4) Bipolar disorder Is this a current diagnosis for this admission?: Yes Plan: Stable
[2019-02-24] MEDS: ATORVASTATIN CALCIUM 10 MG TABLET PO SCH (21:35)
[2019-02-25 05:16] LABS: INTERNATIONAL RATION (INR) 3.57; PROTHROMBIN TIME 36.5 SEC (11.4-15.4)
[2019-02-25] MEDS: PANTOPRAZOLE SODIUM 40 MG TABLET.DR PO SCH ×2 (05:18→17:55)
[2019-02-25 05:21] LABS: HEMATOCRIT 24.2 % (37.9-51.0); HEMOGLOBIN 8.2 g/dL (13.5-17.0); MEAN CORPUSCULAR HEMOGLOBIN 28.6 pg (27.0-33.4); MEAN CORPUSCULAR HGB CONC 33.8 g/dL (32.0-36.0); MEAN CORPUSCULAR VOLUME 85 fl (80-97); RED BLOOD COUNT 2.86 10^6/uL (4.35-5.55); RED CELL DISTRIBUTION WIDTH 15.4 % (11.5-14.0)
[2019-02-25 06:25] LABS: PLATELET COUNT 97 10^3/uL (150-450)
[2019-02-25] MEDS: NORMAL SALINE 1000 ML 1,000 ML IV PRN (06:25)
[2019-02-25] MEDS ORDERED: PHYTONADIONE 5 MG TABLET PO ONE (09:00)
[2019-02-25] MEDS: MAGNESIUM OXIDE 400 MG TABLET PO SCH ×3 (10:29→17:55)
[2019-02-25] MEDS: CARVEDILOL 12.5 MG TABLET PO SCH ×2 (10:32→22:13)
--- NOTE | 2019-02-25 17:51 | PDOC PROGRESS REPORT ---
Subjective Progress Note for:: 02/25/19 Subjective:: This is 73 years old male patient was past medical history of hypertension, hyperlipidemia, history of myocardial infarction and coronary artery disease and status post pacemaker placement presented with chief complaint of "tea colored urine" and found to have supratherapeutic INR related to chronic anticoagulation. Patient was seen on morning rounds with his bone tender present; patient provided permission for us to discuss his care and do assessment while bone tender was present. He reports that he is feeling well today; does continue to have generalized weakness. He reports resolution of his hematuria. He does report adequate urine output; reports 10-12 regular volume voids yesterday. Otherwise he denies fever, chills, chest pain, palpitations, orthopnea, dyspnea, cough, abdominal pain, nausea, vomiting, diarrhea, and peripheral edema. He reports a good appetite. He has no questions or concerns at this time. No concerns per nursing. Reason For Visit: COUMADIN TOXICITY Physical Exam Vital Signs: Temp Pulse Resp BP Pulse Ox 98.8 F 49 L 16 103/66 100 02/25/19 07:17 02/25/19 07:17 02/25/19 07:17 02/25/19 07:17 02/25/19 07:17 Intake & Output 02/24/19 02/25/19 02/26/19 06:59 06:59 06:59 Intake Total 1840 4860 Output Total 1150 201 Balance 690 4659 Weight 75.7 kg 76.5 kg General appearance: PRESENT: no acute distress, cooperative, thin, well- developed Head exam: PRESENT: atraumatic, normocephalic Eye exam: PRESENT: conjunctiva pink, EOMI, PERRLA. ABSENT: scleral icterus Ear exam: PRESENT: normal external ear exam Mouth exam: PRESENT: moist, tongue midline Neck exam: ABSENT: carotid bruit, JVD, lymphadenopathy, thyromegaly Respiratory exam: PRESENT: clear to auscultation [place], symmetrical, unlabored. ABSENT: rales, rhonchi, wheezes Cardiovascular exam: PRESENT: RRR, +S1, +S2. ABSENT: diastolic murmur, rubs, systolic murmur Pulses: PRESENT: normal dorsalis pedis pul Vascular exam: PRESENT: normal capillary refill GI/Abdominal exam: PRESENT: normal bowel sounds, soft. ABSENT: distended, guarding, mass, organolmegaly, rebound, tenderness Rectal exam: PRESENT: deferred Extremities exam: PRESENT: full ROM, +1 edema. ABSENT: calf tenderness, clubbing, pedal edema Neurological exam: PRESENT: alert, awake, oriented to person, oriented to place, oriented to time, oriented to situation, CN II-XII grossly intact. ABSENT: motor sensory deficit Psychiatric exam: PRESENT: normal mood, unusual affect. ABSENT: homicidal ideation, suicidal ideation Skin exam: PRESENT: dry, intact, warm. ABSENT: cyanosis, rash Results Laboratory Results: 02/25/19 04:25 02/24/19 06:06 02/25/19 04:25 WBC 13.0 H RBC 2.86 L Hgb 8.2 L Hct 24.2 L MCV 85 MCH 28.6 MCHC 33.8 RDW 15.4 H Plt Count 97 L 02/19/19 02/19/19 02/19/19 10:55 10:55 17:12 Creatine Kinase 206 H 136 CK-MB (CK-2) 1.48 Troponin I 0.022 NT-Pro-B Natriuret Pep 02/19/19 02/20/19 02/20/19 17:12 01:07 01:07 Creatine Kinase 109 CK-MB (CK-2) 1.05 0.79 Troponin I 0.023 0.025 NT-Pro-B Natriuret Pep 02/20/19 02/24/19 05:18 06:06 Creatine Kinase 37 L CK-MB (CK-2) Troponin I NT-Pro-B Natriuret Pep 5890 H Assessment and Plan - Diagnosis (1) Acute kidney injury Is this a current diagnosis for this admission?: Yes Plan: Patient's creatinine was noted to trend up 0.91-> 1.75-> 2.67 today. He has had an associated increase in his BUN 15-> 34-> 52. Previous provider had resumed IVF at 150 ml/hr without improvement in renal function. Post void bladder scan today >900 ml IV fluids have been discontinued secondary to patient's history of CHF, adequate p.o. intake, elevated proBNP, will and weight gain of 11 kg. Carey catheter inserted with immediate 1000 mL output; clamped for 1 hour followed by an additional 2600 mL output. Continue to avoid nephrotoxic medications as able. Daily chemistries. If creatinine has not improved with a.m. lab work will obtain renal/bladder ultrasound and consider nephrology consultation. Start Flomax. (2) Coronary artery disease Qualifiers: Coronary Disease-Associated Artery/Lesion type: [place] artery Is this a current diagnosis for this admission?: Yes Plan: No anginal symptoms Patient's Coumadin currently on hold secondary to supratherapeutic INR. Continue low-dose atorvastatin. Continue home dose carvedilol. Cardiology has been consulted; appreciate Dr. Rojas's assistance. (3) Coumadin toxicity Is this a current diagnosis for this admission?: Yes Plan: On admission patient's INR was unable to be calculated; PT/APTT elevated. Coumadin was placed on hold. He is received 2 units fresh frozen plasma. INR trended down to 2.44 and Coumadin was resumed. However, patient subsequently developed hematuria and so Coumadin was again placed on hold. INR today is 3.57. Dr. Rojas has been consulted to assist with determining need for continued chronic anticoagulation. Per Dr. Rojas, patient was on chronic anticoagulation due to LV clot. Echocardiogram to assess for intracardiac thrombosis and cardiomyopathy is pending. Appreciate cardiology's assistance. (4) Hematuria Is this a current diagnosis for this admission?: Yes Plan: Recurrent secondary to Coumadin use. Patient currently has Carey in place draining clear shakeel urine; no gross hematuria or blood clots present at this time. However, patient did develop postobstructive renal failure; do have some concern that the patient is continuing to have hematuria. We will continue Carey catheter, flush as needed. Have started Flomax. We will recommend patient have urology follow-up as an outpatient; may benefit from cystoscopy. (5) Bipolar 1 disorder, depressed, mild Is this a current diagnosis for this admission?: No Plan: Stable at this time. Patient is not on mood stabilizers. Supportive care. (6) Hyponatremia Is this a current diagnosis for this admission?: Yes Plan: Sodium is trending down; 137-> 131-> 128-> 126.5 Patient was receiving normal saline at 150 an hour. He reports good p.o. intake. Unclear etiology. Have reviewed his medications for side effect. IV fluids are discontinued. We will continue to monitor daily chemistries. - Time Time Spent with patient: 25-34 minutes Medications reviewed and adjusted accordingly: Yes Anticipated discharge: SNF Within: within 72 hours - Inpatient Certification Based on my medical assessment, after consideration of the patient's comorbidities, presenting symptoms, or acuity I expect that the services needed warrant INPATIENT care.: Yes I certify that my determination is in accordance with my understanding of Medicare's requirements for reasonable and necessary INPATIENT services [42 CFR 412.3e].: Yes Medical Necessity: Significant Comorbidiites Make Outpatient Treatment Too Risky, Need Close Monitoring Due to Risk of Patient Decompensation, Risk of Complication if Not Cared For in Hospital
--- NOTE | 2019-02-25 17:52 | Progress Note Acknowledgement ---
Progress Note Acknowledgement Progess Note Acknowledgement: I, the undersigned member of the medical staff with appropriate privileges and with supervisory authority over Crys Calero, a [facility] practice allied health professional, acknowledge that I have reviewed the progress notes entered on this patient, and in my professional judgment believe that the assessment made and/or any care evidenced was appropriate
[2019-02-25] MEDS: TAMSULOSIN HCL 0.4 MG CAP.SR.24H PO SCH (18:42)
[2019-02-25] MEDS: ATORVASTATIN CALCIUM 10 MG TABLET PO SCH (22:14)
[2019-02-26] MEDS ORDERED: ACETAMINOPHEN 325 MG TABLET ONE ×2 (01:39→17:19)
[2019-02-26 05:14] LABS: HEMATOCRIT 22.2 % (37.9-51.0); MEAN CORPUSCULAR HEMOGLOBIN 29.1 pg (27.0-33.4); MEAN CORPUSCULAR HGB CONC 34.2 g/dL (32.0-36.0); MEAN CORPUSCULAR VOLUME 85 fl (80-97); PLATELET COUNT 100 10^3/uL (150-450); RED BLOOD COUNT 2.61 10^6/uL (4.35-5.55); WHITE BLOOD COUNT 8.1 10^3/uL (4.0-10.5)
[2019-02-26 05:15] LABS: INTERNATIONAL RATION (INR) 2.01; PROTHROMBIN TIME 23.1 SEC (11.4-15.4)
[2019-02-26 05:20] LABS: HEMOGLOBIN 7.6 g/dL (13.5-17.0)
[2019-02-26 05:31] LABS: ALANINE AMINOTRANSFERASE 25 U/L (21-72); ALBUMIN 2.4 g/dL (3.5-5.0); ALKALINE PHOSPHATASE 44 U/L (38-126); ANION GAP 6 (5-19); ASPARTATE AMINO TRANSFERASE 24 U/L (17-59); BILIRUBIN,DIRECT 0.2 mg/dL (0.0-0.4); BILIRUBIN,TOTAL 0.9 mg/dL (0.2-1.3); BLOOD UREA NITROGEN 36 mg/dL (7-20); CARBON DIOXIDE 20 mmol/L (22-30); CHLORIDE 111 mmol/L (98-107); GLUCOSE 96 mg/dL (75-110); SODIUM 137.2 mmol/L (137-145); TOTAL PROTEIN 4.9 g/dL (6.3-8.2)
[2019-02-26] MEDS: PANTOPRAZOLE SODIUM 40 MG TABLET.DR PO SCH ×2 (07:27→17:21)
[2019-02-26] MEDS ORDERED: NORMAL SALINE 250 ML IV PRN ×2 (08:19)
[2019-02-26] MEDS ORDERED: FUROSEMIDE INJ/PF 20 MG/2 ML SDV IV PRN ×2 (08:19→18:50)
[2019-02-26] MEDS: MAGNESIUM OXIDE 400 MG TABLET PO SCH ×3 (09:02→17:22)
[2019-02-26] MEDS: CARVEDILOL 12.5 MG TABLET PO SCH ×2 (09:03→21:23)
[2019-02-26 15:18] LABS: ANION GAP 8 (5-19); BLOOD UREA NITROGEN 30 mg/dL (7-20); CALCIUM 8.1 mg/dL (8.4-10.2); CARBON DIOXIDE 21 mmol/L (22-30); CHLORIDE 109 mmol/L (98-107); GLUCOSE 115 mg/dL (75-110); POTASSIUM 4.8 mmol/L (3.6-5.0); SODIUM 137.7 mmol/L (137-145)
--- NOTE | 2019-02-26 15:40 | RADIOLOGY REPORT (SQ) ---
EXAM DESCRIPTION: CHEST SINGLE VIEW COMPLETED DATE/TIME: 02/26/2019 3:29 pm REASON FOR STUDY: Left pleural effusion by Echo; tachypnea COMPARISON: None. EXAM PARAMETERS: NUMBER OF VIEWS: One view. TECHNIQUE: Single frontal radiographic view of the chest acquired. RADIATION DOSE: NA LIMITATIONS: None. FINDINGS: LUNGS AND PLEURA: Increased opacification in the left base. Left pleural effusion. MEDIASTINUM AND HILAR STRUCTURES: No masses. Contour normal. HEART AND VASCULAR STRUCTURES: Cardiomegaly. No pulmonary edema. BONES: No acute findings. HARDWARE: Pacemaker/defibrillator. OTHER: No other significant finding. IMPRESSION: Cardiomegaly without pulmonary edema. Left pleural effusion. Cannot exclude left lower lobe pneumonia. TECHNICAL DOCUMENTATION: JOB ID: [id number] [employer]- All Rights Reserved Reading location - IP/workstation name: [email or web address]
--- NOTE | 2019-02-26 16:23 | PDOC PROGRESS REPORT ---
Subjective Progress Note for:: 02/26/19 Subjective:: This is 73 years old male patient was past medical history of hypertension, hyperlipidemia, history of myocardial infarction and coronary artery disease and status post pacemaker placement presented with chief complaint of "tea colored urine" and found to have supratherapeutic INR related to chronic anticoagulation. Patient was seen on morning rounds. He reports that he is feeling well today; does continue to have generalized weakness. He states that his breathing is somewhat easier, although breath sounds are clear he is noted to be mildly tachypneic. No accessory muscle use or retractions noted. He does continue to complain of abdominal discomfort; relates this to having had a large lunch. He is noted to be somewhat distended and tender to palpation. Otherwise he denies fever, chills, chest pain, palpitations, orthopnea, cough, nausea, vomiting, diarrhea, and peripheral edema. He reports a good appetite. He has no questions or concerns at this time. No concerns per nursing. Reason For Visit: COUMADIN TOXICITY Physical Exam Vital Signs: Temp Pulse Resp BP Pulse Ox 99.3 F 83 24 H 114/58 L 98 02/26/19 15:23 02/26/19 15:23 02/26/19 15:23 02/26/19 15:23 02/26/19 15:23 Intake & Output 02/25/19 02/26/19 02/27/19 06:59 06:59 06:59 Intake Total 4860 1645 1430 Output Total 201 5190 3150 Balance 4869 -7085 -1720 Weight 76.5 kg 78.2 kg General appearance: PRESENT: no acute distress, cooperative, well-developed, well-nourished Head exam: PRESENT: atraumatic, normocephalic Eye exam: PRESENT: conjunctiva pale, EOMI, PERRLA. ABSENT: scleral icterus Ear exam: PRESENT: normal external ear exam Mouth exam: PRESENT: moist, tongue midline Teeth exam: PRESENT: poor dentation Neck exam: ABSENT: carotid bruit, JVD, lymphadenopathy, thyromegaly Respiratory exam: PRESENT: clear to auscultation [place], decreased breath sounds - Bibasilar, symmetrical, tachypnea, unlabored. ABSENT: rales, rhonchi, wheezes Cardiovascular exam: PRESENT: RRR, +S1, +S2. ABSENT: diastolic murmur, rubs, systolic murmur Pulses: PRESENT: normal dorsalis pedis pul Vascular exam: PRESENT: normal capillary refill GI/Abdominal exam: PRESENT: distended, normal bowel sounds, soft, tenderness. ABSENT: guarding, mass, organolmegaly, rebound Rectal exam: PRESENT: deferred Gentrourinary exam: PRESENT: indwelling catheter - [place]-tinged urine with scant clots noted Extremities exam: PRESENT: full ROM. ABSENT: calf tenderness, clubbing, pedal edema Neurological exam: PRESENT: alert, awake, oriented to person, oriented to place, oriented to time, oriented to situation, CN II-XII grossly intact. ABSENT: motor sensory deficit Psychiatric exam: PRESENT: normal mood, unusual affect. ABSENT: homicidal ideat ion, suicidal ideation Skin exam: PRESENT: dry, intact, warm. ABSENT: cyanosis, rash Additional comments: Full skin assessment done; no ecchymosis noted to extremities, abdomen, or back. Results Laboratory Results: 02/26/19 04:41 02/26/19 14:33 02/26/19 02/26/19 02/26/19 04:41 04:41 08:53 WBC 8.1 RBC 2.61 L Hgb 7.6 L Hct 22.2 L MCV 85 MCH 29.1 MCHC 34.2 RDW 16.0 H Plt Count 100 L Sodium 137.2 Potassium 4.0 Chloride 111 H Carbon Dioxide 20 L Anion Gap 6 BUN 36 H Creatinine 1.53 H Est GFR ( Amer) 54 L Est GFR (Non-Af Amer) 45 L Glucose 96 Calcium 8.0 L Total Bilirubin 0.9 AST 24 ALT 25 Alkaline Phosphatase 44 Total Protein 4.9 L Albumin 2.4 L Stool Occult Blood Blood Type O POSITIVE Antibody Screen NEGATIVE 02/26/19 02/26/19 09:35 14:33 WBC RBC Hgb Hct MCV MCH MCHC RDW Plt Count Sodium 137.7 Potassium 4.8 Chloride 109 H Carbon Dioxide 21 L Anion Gap 8 BUN 30 H Creatinine 1.28 H Est GFR ( Amer) > 60 Est GFR (Non-Af Amer) 55 L Glucose 115 H Calcium 8.1 L Total Bilirubin AST ALT Alkaline Phosphatase Total Protein Albumin Stool Occult Blood NEGATIVE Blood Type Antibody Screen 02/19/19 02/19/19 02/19/19 10:55 10:55 17:12 Creatine Kinase 206 H 136 CK-MB (CK-2) 1.48 Troponin I 0.022 NT-Pro-B Natriuret Pep 02/19/19 02/20/19 02/20/19 17:12 01:07 01:07 Creatine Kinase 109 CK-MB (CK-2) 1.05 0.79 Troponin I 0.023 0.025 NT-Pro-B Natriuret Pep 02/20/19 02/24/19 05:18 06:06 Creatine Kinase 37 L CK-MB (CK-2) Troponin I NT-Pro-B Natriuret Pep 5890 H Impressions: Chest X-Ray 02/26/19 00:00 IMPRESSION: Cardiomegaly without pulmonary edema. Left pleural effusion. Cannot exclude left lower lobe pneumonia. Assessment and Plan - Diagnosis (1) Acute kidney injury Is this a current diagnosis for this admission?: Yes Plan: Improved; 0.91-> 1.75-> 2.67-> 1.53-> 1.28 Cause likely Postobstructive; Post void bladder scan >900 ml IV fluids have been discontinued. Carey catheter inserted yesterday with immediate 1000 mL output; clamped for 1 hour followed by an additional 2600 mL output. Continue to avoid nephrotoxic medications as able. Continue Flomax. Daily chemistries. (2) Coronary artery disease Qualifiers: Coronary Disease-Associated Artery/Lesion type: [place] artery Is this a current diagnosis for this admission?: Yes Plan: No anginal symptoms Patient's Coumadin currently on hold secondary to supratherapeutic INR and active bleeding. Continue low-dose atorvastatin. Continue home dose carvedilol. Cardiology has been consulted; appreciate Dr. Rojas's assistance. (3) Coumadin toxicity Is this a current diagnosis for this admission?: Yes Plan: On admission patient's INR was unable to be calculated; PT/APTT elevated. Coumadin was placed on hold. He is received 2 units fresh frozen plasma. INR trended down to 2.44 and Coumadin was resumed. However, patient subseque ntly developed hematuria and so Coumadin was again placed on hold. Recieved Vit K 5mg p.o. x 1 INR today is 2.00. Dr. Rojas has been consulted to assist with determining need for continued chronic anticoagulation. Per Dr. Crystal, patient was on chronic anticoagulation due to LV clot. Echo cardiogram to assess for intracardiac thrombosis and cardiomyopathy is pending. Hgb trending down; will begun evaluating for occult causes of blood loss. To receive 2 units PRBC today. Discussed with cardiology; recommends renally dosed Eliquis once active bleeding has resolved and is safe to resume chronic anticoagulant. (4) Hematuria Is this a current diagnosis for this admission?: Yes Plan: Recurrent secondary to Coumadin use. Patient currently has Carey in place draining clear shakeel urine; no gross hematuria or blood clots present at this time. However, patient did develop postobstructive renal failure; do have some concern that the patient is continuing to have hematuria. We will continue Carey catheter, flush as needed. Continue Flomax. We will recommend patient have urology follow-up as an outpatient; may benefit from cystoscopy. (5) Bipolar 1 disorder, depressed, mild Is this a current diagnosis for this admission?: No Plan: Stable at this time. Patient is not on mood stabilizers. Supportive care. (6) Hyponatremia Is this a current diagnosis for this admission?: Yes Plan: Resolved; Na 137-> 131-> 128-> 126.5-> 137.7 Patient was receiving normal saline at 150 an hour. He reports good p.o. intake. Unclear etiology; possibe fluid overload secondary to SPENSER. Have reviewed his medications for side effect. IV fluids are discontinued. We will continue to monitor daily chemistries. (7) Anemia Is this a current diagnosis for this admission?: Yes Plan: Acute blood loss anemia. Multifactorial secondary to elevated INR and hematuria. Concerned for possible additional sources of blood loss as hemoglobin precipitously dropped over the last 48 hours from 9.9-> 7.6 and is associated with hypotension and tachypnea. Urinalysis positive for blood. Occult stool is negative. Chest x-ray reveals left side pleural effusion. CT abdomen pelvis to assess for intra-abdominal sources of bleeding is pending (patient is noted to have a distended abdomen and tenderness on palpation). Skin evaluation done; no ecchymosis or hematomas found. Patient is to receive 2 units packed red blood cells today. We will monitor serial CBCs. Continue to hold anticoagulants. Will transfuse for Hgb <8 - Time Time Spent with patient: 25-34 minutes Medications reviewed and adjusted accordingly: Yes Anticipated discharge: SNF - Bed offer at [facility]
[2019-02-26] MEDS ORDERED: ACETAMINOPHEN 325 MG TABLET PO ONE (17:15)
[2019-02-26] MEDS ORDERED: DIPHENHYDRAMINE HCL 25 MG CAPSULE PO ONE (17:15)
[2019-02-26] MEDS ORDERED: DIPHENHYDRAMINE HCL 25 MG CAPSULE ONE (17:19)
[2019-02-26] MEDS: TAMSULOSIN HCL 0.4 MG CAP.SR.24H PO SCH (17:22)
[2019-02-26] MEDS: CYCLOSPORINE 0.05% OPH EMULSIO 0.4 ML DROPERETTE OU SCH (21:23)
[2019-02-26] MEDS: ATORVASTATIN CALCIUM 10 MG TABLET PO SCH (21:23)
[2019-02-26 22:26] LABS: ABSOLUTE BASOPHILS # (AUTO) 0.1 10^3/uL (0.0-0.2); ABSOLUTE EOSINOPHILS # (AUTO) 0.6 10^3/uL (0.0-0.6); ABSOLUTE LYMPHOCYTES (AUTO) 1.3 10^3/uL (0.5-4.7); ABSOLUTE MONOCYTES (AUTO) 1.4 10^3/uL (0.1-1.4); ABSOLUTE NEUT (AUTO) 7.5 10^3/uL (1.7-8.2); BASOPHILS % (AUTO) 1.3 % (0-2); EOSINOPHILS % (AUTO) 5.5 % (0-6); HEMATOCRIT 28.7 % (37.9-51.0); LYMPHOCYTES % (AUTO) 11.7 % (13-45); MEAN CORPUSCULAR HEMOGLOBIN 29.3 pg (27.0-33.4); MEAN CORPUSCULAR HGB CONC 34.4 g/dL (32.0-36.0); MEAN CORPUSCULAR VOLUME 85 fl (80-97); MONOCYTES % (AUTO) 12.6 % (3-13); PLATELET COUNT 112 10^3/uL (150-450); RED BLOOD COUNT 3.37 10^6/uL (4.35-5.55); RED CELL DISTRIBUTION WIDTH 16.1 % (11.5-14.0); SEGMENTED NEUTROPHILS % (AUTO) 68.9 % (42-78); TOTAL CELLS COUNTED % (AUTO) 100 %; WHITE BLOOD COUNT 10.9 10^3/uL (4.0-10.5)
[2019-02-26 22:30] LABS: HEMOGLOBIN 9.9 g/dL (13.5-17.0)
[2019-02-27 05:12] LABS: INTERNATIONAL RATION (INR) 1.64; PROTHROMBIN TIME 19.6 SEC (11.4-15.4)
[2019-02-27 05:21] LABS: HEMATOCRIT 28.3 % (37.9-51.0); HEMOGLOBIN 9.8 g/dL (13.5-17.0); MEAN CORPUSCULAR HEMOGLOBIN 29.2 pg (27.0-33.4); MEAN CORPUSCULAR HGB CONC 34.4 g/dL (32.0-36.0); MEAN CORPUSCULAR VOLUME 85 fl (80-97); PLATELET COUNT 115 10^3/uL (150-450); RED BLOOD COUNT 3.34 10^6/uL (4.35-5.55); WHITE BLOOD COUNT 9.7 10^3/uL (4.0-10.5)
[2019-02-27 05:25] LABS: ANION GAP 6 (5-19); BLOOD UREA NITROGEN 26 mg/dL (7-20); CALCIUM 8.3 mg/dL (8.4-10.2); CARBON DIOXIDE 26 mmol/L (22-30); CHLORIDE 106 mmol/L (98-107); GLUCOSE 86 mg/dL (75-110); POTASSIUM 4.2 mmol/L (3.6-5.0); SODIUM 137.7 mmol/L (137-145)
[2019-02-27] MEDS: PANTOPRAZOLE SODIUM 40 MG TABLET.DR PO SCH ×2 (06:13→17:35)
--- NOTE | 2019-02-27 08:25 | RADIOLOGY REPORT (SQ) ---
EXAM DESCRIPTION: CT ABD/PELVIS NO ORAL OR IV COMPLETED DATE/TIME: 02/27/2019 8:09 am REASON FOR STUDY: elevated INR, ABLA, ?intrabdominal bleed drop in hematocrit, evaluate for retroper itoneal hemorrhage COMPARISON: None. TECHNIQUE: CT scan of the abdomen and pelvis performed without intravenous or oral contrast. Images reviewed with lung, soft tissue, and bone windows. Reconstructed coronal and sagittal MPR images revi ewed. All images stored on PACS. All CT scanners at this facility use dose modulation, iterative reconstruction, and/or weight based d osing when appropriate to reduce radiation dose to as low as reasonably achievable (ALARA). [facility]: Dose Right [facility]: CareDose [facility]: Dose Right [facility]: Teradose 4D [facility]: [employer] RADIATION DOSE: 4.2mGy. LIMITATIONS: None. FINDINGS: LOWER CHEST: Trace bilateral pleural effusions are present. Minimal left basilar atelecta sis. Massive cardiomegaly is present without pericardial effusion. NON-CONTRASTED LIVER, SPLEEN, ADRENALS: Evaluation limited by lack of IV contrast. No identified sign ificant masses. PANCREAS: No masses. No peripancreatic inflammatory changes. GALLBLADDER: No identified stones by CT criteria. No inflammatory changes to suggest cholecystitis. RIGHT KIDNEY AND URETER: No suspicious masses. Assessment limited by lack of IV contrast. No signif icant calcifications. No hydronephrosis or hydroureter. LEFT KIDNEY AND URETER: No suspicious masses. Assessment limited by lack of IV contrast. No signifi cant calcifications. No hydronephrosis or hydroureter. AORTA AND RETROPERITONEUM: No aneurysm. No retroperitoneal masses or adenopathy. BOWEL AND PERITONEAL CAVITY: No obvious masses or inflammatory changes. No free fluid. APPENDIX: Not definitely visualized. PELVIS, BLADDER, AND ABDOMINAL WALL:Small amount of free pelvic fluid. Bladder decompressed by a Fol ey catheter. No pelvic masses or adenopathy. Third-spacing of fluid along the abdominal wall with i ncreased density of abdominal wall fat. BONES: No significant findings. OTHER: Findings discussed with Crys Calero IMPRESSION: NO SIGNIFICANT OR ACUTE PROCESS IN THE ABDOMEN OR PELVIS. COMMENT: Quality ID # [id number]: Final reports with documentation of one or more dose reduction techniques (e.g., Automated exposure control, adjustment of the mA and/or kV according to patient size, use of iterative reconstruction technique) TECHNICAL DOCUMENTATION: JOB ID: [id number] [employer] All Rights Reserved Reading location - IP/workstation name: [email or web address]
[2019-02-27] MEDS: CARVEDILOL 12.5 MG TABLET PO SCH ×2 (09:57→21:47)
[2019-02-27] MEDS: MAGNESIUM OXIDE 400 MG TABLET PO SCH ×3 (10:02→17:35)
[2019-02-27] MEDS: CYCLOSPORINE 0.05% OPH EMULSIO 0.4 ML DROPERETTE OU SCH ×2 (10:03→21:47)
--- NOTE | 2019-02-27 11:28 | XCELERA REPORT ---
[address] [address] Transthoracic Echocardiogram Report Name: MARANDA WINN Age: 73 yrs Gender: Male : 1945 Patient Status: Inpatient Patient Location: [address] [place], [place] [address] Study Date: 02/25/2019 02:16 PM Height: 68 in Weight: 168 lb BSA: 1.9 m2 Procedure: A two-dimensional transthoracic echocardiogram with color flow and Doppler was performed. Study Quality: Fair. Reason For Study: Evaluate LV clot and for cardiomegaly. History: CRDIOMRGALY /INTRA CARDIAC THROMBUS. Ordering Physician: KULWANT LIZARRAGA Performed By: Heather Kim Interpretation Summary The left ventricle is mildly to moderately dilated. There is normal left ventricular wall thickness. LV EF is 30% Left ventricular systolic function is severely reduced. LV apex is akinetic.Rest of the LV miles are severely hypokinetic.There is an adharent mural thrombus in he LV apex.This although not calcified seems olld.It is non mobile. Not a study to assess for ASD,VSDmor OFO.There is 'Smoke' in the LV (Presussor of thrombus). The right ventricle is mildly dilated. The right ventricle is not well visualized secondary to technical limitations The right atrium is normal. The left atrium is mildly dilated. There is no evidence of mitral valve prolapse. There is no vegetation seen on the mitral valve. There is no mitral valve stenosis. There is a severe amount of mitral regurgitation There is no aortic valvular vegetation. There is aortic sclerosis without aortic stenosis. There is no LVOT obstruction. No aortic regurgitation is present. There is no tricuspid stenosis. There is a mild amount of tricuspid regurgitation There is moderate to severe pulmonary hypertension by echo RVSP is 60 to 65 mm of Hg , with RA mean of 15 to 20. There is a trace amount of pulmonic regurgitation There is no pulmonic valvular stenosis. The aortic root is not well visualized but is probably normal size. The inferior vena cava appeared dilated and decreased < 50% with respiration (RAP 15-20 mmHg) Minimal pericardial effusion. Moderate size left pleural effusion. MMode/2D Measurements & Calculations RVDd: 3.7 cm LVIDd: 6.6 cm FS: 18.4 % Ao root diam: 3.6 cm IVSd: 1.1 cm LVIDs: 5.4 cm EDV(Teich): LVPWd: 1.1 cm 222.4 ml Ao root area: ESV(Teich): 9.9 cm2 139.5 ml EF(Teich): 37.3 % EDV(MOD-sp4): SV(MOD-sp4): 215.9 ml 73.0 ml ESV(MOD-sp4): 143.0 ml EF(MOD-sp4): 33.8 % Doppler Measurements & Calculations MV E max josie: MV dec slope: Ao V2 max: LV V1 max P.1 cm/sec 126.9 cm/sec 5.5 mmHg MV A max josie: 350.0 cm/sec2 Ao max PG: LV V1 max: 47.9 cm/sec MV dec time: 0.24 sec 6.4 mmHg 117.6 cm/sec MV E/A: 1.8 LV dP/dt: 612.6 mmHg/s PA V2 max: TR max josie: 86.4 cm/sec 333.8 cm/sec PA max P.0 mmHgTR max P.6 mmHg Left Ventricle The left ventricle is mildly to moderately dilated. There is normal left ventricular wall thickness. LV EF is 30%. Left ventricular systolic function is severely reduced. LV apex is akinetic.Rest of the LV miles are severely hypokinetic.There is an adharent mural thrombus in he LV apex.This although not calcified seems olld.It is non mobile. Not a study to assess for ASD,VSDmor OFO.There is 'Smoke' in the LV (Presussor of thrombus). Right Ventricle The right ventricle is mildly dilated. The right ventricle is not well visualized secondary to technical limitations. Atria The right atrium is normal. The left atrium is mildly dilated. Mitral Valve There is mild mitral annular calcification. There is no evidence of mitral valve prolapse. There is no vegetation seen on the mitral valve. There is no mitral valve stenosis. There is a severe amount of mitral regurgitation. Aortic Valve There is no aortic valvular vegetation. There is aortic sclerosis without aortic stenosis. There is no LVOT obstruction. No aortic regurgitation is present. Tricuspid Valve There is no tricuspid stenosis. There is a mild amount of tricuspid regurgitation. There is moderate to severe pulmonary hypertension by echo. RVSP is 60 to 65 mm of Hg , with RA mean of 15 to 20. Pulmonic Valve There is no pulmonic valvular stenosis. There is a trace amount of pulmonic regurgitation. Great Vessels The aortic root is not well visualized but is probably normal size. The inferior vena cava appeared dilated and decreased < 50% with respiration (RAP 15-20 mmHg). Effusions Minimal pericardial effusion. Moderate size left pleural effusion. : KULWANT LIZARRAGA > Lilly Rojas
[2019-02-27] MEDS: TAMSULOSIN HCL 0.4 MG CAP.SR.24H PO SCH (17:35)
--- NOTE | 2019-02-27 21:24 | PDOC PROGRESS REPORT ---
Subjective Progress Note for:: 02/27/19 Subjective:: This is 73 years old male patient was past medical history of hypertension, hyperlipidemia, history of myocardial infarction and coronary artery disease and status post pacemaker placement presented with chief complaint of "tea colored urine" and found to have supratherapeutic INR related to chronic anticoagulation. Patient was seen on morning rounds. He reports that he is feeling well today. He reports that he is feeling well today and has no new complaints. Weakness is improved and dyspnea has resolved. He further denies fever, chills, chest pain, palpitations, orthopnea, cough, nausea, vomiting, diarrhea, and peripheral edema. He reports a good appetite. He has no questions or concerns at this time. No concerns per nursing. Reason For Visit: COUMADIN TOXICITY Physical Exam Vital Signs: Temp Pulse Resp BP Pulse Ox 98.7 F 70 18 98/66 L 97 02/27/19 17:34 02/27/19 17:34 02/27/19 17:34 02/27/19 17:34 02/27/19 17:34 Intake & Output 02/26/19 02/27/19 02/28/19 06:59 06:59 06:59 Intake Total 1645 4660 1220 Output Total 5190 7200 1120 Balance -1617 -0420 100 Weight 78.2 kg 78.4 kg General appearance: PRESENT: no acute distress, well-developed, well-nourished Head exam: PRESENT: atraumatic, normocephalic Eye exam: PRESENT: conjunctiva pink, EOMI, PERRLA. ABSENT: scleral icterus Ear exam: PRESENT: normal external ear exam Mouth exam: PRESENT: moist, tongue midline Neck exam: ABSENT: carotid bruit, JVD, lymphadenopathy, thyromegaly Respiratory exam: PRESENT: clear to auscultation [place], decreased breath sounds - bibasilar, symmetrical, unlabored. ABSENT: rales, rhonchi, wheezes Cardiovascular exam: PRESENT: RRR, +S1, +S2. ABSENT: diastolic murmur, rubs, systolic murmur Pulses: PRESENT: normal dorsalis pedis pul Vascular exam: PRESENT: normal capillary refill GI/Abdominal exam: PRESENT: normal bowel sounds, soft. ABSENT: distended, guarding, mass, organolmegaly, rebound, tenderness Rectal exam: PRESENT: deferred Gentrourinary exam: PRESENT: indwelling catheter - [place]-tinged urine with scant clots noted Extremities exam: PRESENT: full ROM. ABSENT: calf tenderness, clubbing, pedal edema Neurological exam: PRESENT: alert, awake, oriented to person, oriented to place, oriented to time, oriented to situation, CN II-XII grossly intact. ABSENT: motor sensory deficit Psychiatric exam: PRESENT: appropriate affect, normal mood. ABSENT: homicidal ideation, suicidal ideation Skin exam: PRESENT: dry, intact, warm. ABSENT: cyanosis, rash Results Laboratory Results: 02/27/19 04:07 02/27/19 04:07 02/26/19 02/27/19 02/27/19 22:07 04:07 04:07 WBC 10.9 H 9.7 RBC 3.37 L 3.34 L Hgb 9.9 L D 9.8 L Hct 28.7 L 28.3 L MCV 85 85 MCH 29.3 29.2 MCHC 34.4 34.4 RDW 16.1 H 16.0 H Plt Count 112 L 115 L Seg Neutrophils % 68.9 Lymphocytes % 11.7 L Monocytes % 12.6 Eosinophils % 5.5 Basophils % 1.3 Absolute Neutrophils 7.5 Absolute Lymphocytes 1.3 Absolute Monocytes 1.4 Absolute Eosinophils 0.6 Absolute Basophils 0.1 Sodium 137.7 Potassium 4.2 Chloride 106 Carbon Dioxide 26 Anion Gap 6 BUN 26 H Creatinine 1.27 H Est GFR ( Amer) > 60 Est GFR (Non-Af Amer) 56 L Glucose 86 Calcium 8.3 L 02/19/19 02/19/19 02/19/19 10:55 10:55 17:12 Creatine Kinase 206 H 136 CK-MB (CK-2) 1.48 Troponin I 0.022 NT-Pro-B Natriuret Pep 02/19/19 02/20/19 02/20/19 17:12 01:07 01:07 Creatine Kinase 109 CK-MB (CK-2) 1.05 0.79 Troponin I 0.023 0.025 NT-Pro-B Natriuret Pep 02/20/19 02/24/19 05:18 06:06 Creatine Kinase 37 L CK-MB (CK-2) Troponin I NT-Pro-B Natriuret Pep 5890 H Impressions: Abdomen/Pelvis CT 02/26/19 00:00 IMPRESSION: NO SIGNIFICANT OR ACUTE PROCESS IN THE ABDOMEN OR PELVIS. Chest X-Ray 02/26/19 00:00 IMPRESSION: Cardiomegaly without pulmonary edema. Left pleural effusion. Cannot exclude left lower lobe pneumonia. Assessment and Plan - Diagnosis (1) Acute kidney injury Is this a current diagnosis for this admission?: Yes Plan: Improved; 0.91-> 1.75-> 2.67-> 1.53-> 1.28 -> 1.27 Cause likely Postobstructive; Post void bladder scan >900 ml IV fluids have been discontinued. Carey catheter placed with immediate 1000 mL output; clamped for 1 hour followed by an additional 2600 mL output. Continue to avoid nephrotoxic medications as able. Continue Flomax. Daily chemistries. (2) Coronary artery disease Qualifiers: Coronary Disease-Associated Artery/Lesion type: [place] artery Is this a current diagnosis for this admission?: Yes Plan: No anginal symptoms Continue low-dose atorvastatin. Continue home dose carvedilol. Cardiology has been consulted; appreciate Dr. Rojas's assistance. (3) Coumadin toxicity Is this a current diagnosis for this admission?: Yes Plan: On admission patient's INR was unable to be calculated; PT/APTT elevated. Coumadin was placed on hold. He is received 2 units fresh frozen plasma. INR trended down to 2.44 and Coumadin was resumed. However, patient subsequently developed hematuria and so Coumadin was again placed on hold. Recieved Vit K 5mg p.o. x 1 INR today is 1.64. Dr. Rojas has been consulted to assist with determining need for continued chronic anticoagulation. Per Dr. Rojas, patient was on chronic anticoagulation due to LV clot. Echocardiogram this admission does show chronic appearing LV clot with "smoke" sign. Discussed with cardiology; recommends renally dosed Eliquis. (4) Hematuria Is this a current diagnosis for this admission?: Yes Plan: Recurrent secondary to Coumadin use. We will continue Carey catheter, flush as needed. Continue Flomax. Discussed with Naz Agudelo ([facility]); recommends starting Eliquis and observing in-house for recurrent hematuria of concern for ABLA. Ms. Agudelo will arrange for follow up appointment to schedule cystoscopy for further evaluation. (5) Bipolar 1 disorder, depressed, mild Is this a current diagnosis for this admission?: No Plan: Stable at this time. Patient is not on mood stabilizers. Supportive care. (6) Hyponatremia Is this a current diagnosis for this admission?: Yes Plan: Resolved; Na 137-> 131-> 128-> 126.5-> 137.7 Patient was receiving normal saline at 150 an hour. He reports good p.o. intake. Unclear etiology; possibe fluid overload secondary to SPENSER. Have reviewed his medications for side effect. IV fluids are discontinued. We will continue to monitor daily chemistries. (7) Anemia Is this a current diagnosis for this admission?: Yes Plan: Acute blood loss anemia. Multifactorial secondary to elevated INR and hematuria. Hemoglobin precipitously dropped 9.9-> 7.6; now 9.8 s/p 2 UPRBC Urinalysis positive for blood. Occult stool is negative. Chest x-ray reveals left side pleural effusion. CT abdomen pelvis is negative for acute findings or intra abdominal bleeding. Skin evaluation done; no ecchymosis or hematomas found. We will monitor daily CBCs. Plan to start renally dosed Eliquis if Hgb remains stable in a.m. (8) Left ventricular thrombus Is this a current diagnosis for this admission?: Yes Plan: Seen on echocardiogram this admission. Discussed w/ Dr. Pickett; recommends starting renally dosed Eliquis. - Time Time Spent with patient: 35 or more minutes Medications reviewed and adjusted accordingly: Yes Anticipated discharge: SNF Within: within 72 hours
[2019-02-27] MEDS: ATORVASTATIN CALCIUM 10 MG TABLET PO SCH (21:47)
[2019-02-27] MEDS ORDERED: CARVEDILOL 12.5 MG TABLET PO SCH (22:00)
--- NOTE | 2019-02-27 23:43 | PDOC CONSULTATION ---
Consultation-Blank Consultation: CARDIOLOGY CONSULTATION by Dr. Lilly Jaimes on 02/27/2019
[2019-02-28 04:36] LABS: HEMATOCRIT 28.7 % (37.9-51.0); HEMOGLOBIN 9.9 g/dL (13.5-17.0); MEAN CORPUSCULAR HEMOGLOBIN 29.2 pg (27.0-33.4); MEAN CORPUSCULAR HGB CONC 34.4 g/dL (32.0-36.0); MEAN CORPUSCULAR VOLUME 85 fl (80-97); PLATELET COUNT 127 10^3/uL (150-450); RED BLOOD COUNT 3.38 10^6/uL (4.35-5.55); RED CELL DISTRIBUTION WIDTH 16.1 % (11.5-14.0); WHITE BLOOD COUNT 10.3 10^3/uL (4.0-10.5)
[2019-02-28 04:57] LABS: ANION GAP 5 (5-19); BLOOD UREA NITROGEN 22 mg/dL (7-20); CALCIUM 8.4 mg/dL (8.4-10.2); CARBON DIOXIDE 26 mmol/L (22-30); CHLORIDE 105 mmol/L (98-107); GLUCOSE 102 mg/dL (75-110); POTASSIUM 4.6 mmol/L (3.6-5.0); SODIUM 135.5 mmol/L (137-145)
[2019-02-28] MEDS: PANTOPRAZOLE SODIUM 40 MG TABLET.DR PO SCH ×2 (06:40→17:53)
[2019-02-28] MEDS: MAGNESIUM OXIDE 400 MG TABLET PO SCH ×3 (11:38→17:53)
[2019-02-28] MEDS: APIXABAN 2.5 MG TABLET PO SCH ×2 (11:38→17:53)
[2019-02-28] MEDS: CARVEDILOL 12.5 MG TABLET PO SCH ×2 (11:42→22:47)
[2019-02-28] MEDS: CYCLOSPORINE 0.05% OPH EMULSIO 0.4 ML DROPERETTE OU SCH ×2 (11:42→22:47)
--- NOTE | 2019-02-28 14:45 | PDOC PROGRESS REPORT ---
Subjective Progress Note for:: 02/28/19 Subjective:: This is 73 years old male patient was past medical history of hypertension, hyperlipidemia, history of myocardial infarction and coronary artery disease and status post pacemaker placement presented with chief complaint of "tea colored urine" and found to have supratherapeutic INR related to chronic anticoagulation. Patient was seen on morning rounds with friend present; patient give permission to continue exam. He reports that he is feeling well today and has no new complaints. Weakness is improved and dyspnea has resolved; has been able to ambulate on room air w/ walker. He further denies fever, chills, chest pain, palpitations, orthopnea, cough, nausea, vomiting, diarrhea, and peripheral edema. He reports a good appetite. He has no questions or concerns at this time. No concerns per nursing. Reason For Visit: COUMADIN TOXICITY Physical Exam Vital Signs: Temp Pulse Resp BP Pulse Ox 97.4 F 62 18 110/63 98 02/28/19 08:23 02/28/19 08:23 02/28/19 08:23 02/28/19 08:23 02/28/19 08:23 Intake & Output 02/27/19 02/28/19 03/01/19 06:59 06:59 06:59 Intake Total 4660 1220 Output Total 7200 3570 Balance -2540 -2350 Weight 78.4 kg 70.6 kg General appearance: PRESENT: no acute distress, well-developed, well-nourished Head exam: PRESENT: atraumatic, normocephalic Eye exam: PRESENT: conjunctiva pink, EOMI, PERRLA. ABSENT: scleral icterus Ear exam: PRESENT: normal external ear exam Mouth exam: PRESENT: moist, tongue midline Neck exam: ABSENT: carotid bruit, JVD, lymphadenopathy, thyromegaly Respiratory exam: PRESENT: clear to auscultation [place], symmetrical, unlabored. ABSENT: rales, rhonchi, wheezes Cardiovascular exam: PRESENT: RRR, +S1, +S2. ABSENT: diastolic murmur, rubs, systolic murmur Pulses: PRESENT: normal dorsalis pedis pul Vascular exam: PRESENT: normal capillary refill GI/Abdominal exam: PRESENT: normal bowel sounds, soft. ABSENT: distended, guarding, mass, organolmegaly, rebound, tenderness Rectal exam: PRESENT: deferred Gentrourinary exam: PRESENT: indwelling catheter - [place]; no gross hematuria Extremities exam: PRESENT: full ROM. ABSENT: calf tenderness, clubbing, pedal edema Neurological exam: PRESENT: alert, awake, oriented to person, oriented to place, oriented to time, oriented to situation, CN II-XII grossly intact. ABSENT: motor sensory deficit Psychiatric exam: PRESENT: appropriate affect, normal mood. ABSENT: homicidal ideation, suicidal ideation Skin exam: PRESENT: dry, intact, warm. ABSENT: cyanosis, rash Results Laboratory Results: 02/28/19 04:28 02/28/19 04:28 02/28/19 02/28/19 04:28 04:28 WBC 10.3 RBC 3.38 L Hgb 9.9 L Hct 28.7 L MCV 85 MCH 29.2 MCHC 34.4 RDW 16.1 H Plt Count 127 L Sodium 135.5 L Potassium 4.6 Chloride 105 Carbon Dioxide 26 Anion Gap 5 BUN 22 H Creatinine 1.11 Est GFR ( Amer) > 60 Est GFR (Non-Af Amer) > 60 Glucose 102 Calcium 8.4 02/19/19 02/19/19 02/19/19 10:55 10:55 17:12 Creatine Kinase 206 H 136 CK-MB (CK-2) 1.48 Troponin I 0.022 NT-Pro-B Natriuret Pep 02/19/19 02/20/19 02/20/19 17:12 01:07 01:07 Creatine Kinase 109 CK-MB (CK-2) 1.05 0.79 Troponin I 0.023 0.025 NT-Pro-B Natriuret Pep 02/20/19 02/24/19 05:18 06:06 Creatine Kinase 37 L CK-MB (CK-2) Troponin I NT-Pro-B Natriuret Pep 5890 H Impressions: Abdomen/Pelvis CT 02/26/19 00:00 IMPRESSION: NO SIGNIFICANT OR ACUTE PROCESS IN THE ABDOMEN OR PELVIS. Chest X-Ray 02/26/19 00:00 IMPRESSION: Cardiomegaly without pulmonary edema. Left pleural effusion. Cannot exclude left lower lobe pneumonia. Assessment and Plan - Diagnosis (1) Acute kidney injury Is this a current diagnosis for this admission?: Yes Plan: Resolved; 0.91-> 1.75-> 2.67-> 1.53-> 1.28 -> 1.27-> 1.11 Postobstructive; Post void bladder scan >900 ml IV fluids have been discontinued. Continue Mi catheter Continue to avoid nephrotoxic medications as able. Continue Flomax. Daily chemistries. Follow up with Urology as outpatient. (2) Coronary artery disease Qualifiers: Coronary Disease-Associated Artery/Lesion type: [place] artery Is this a current diagnosis for this admission?: Yes Plan: No anginal symptoms Continue low-dose atorvastatin. Continue home dose carvedilol. Cardiology has been consulted; appreciate Dr. Rojas's assistance. (3) Coumadin toxicity Is this a current diagnosis for this admission?: Yes Plan: Resolved. Coumadin was placed on hold. He has received 2 units fresh frozen plasma. Recieved Vit K 5mg p.o. x 1 INR last check 1.64. Dr. Rojas has been consulted to assist with determining need for continued chronic anticoagulation. Per Dr. Rojas, patient was on chronic anticoagulation due to LV clot. Echocardiogram this admission does show chronic appearing LV clot with "smoke" sign. Discussed with cardiology; recommends renally dosed Eliquis. (4) Hematuria Is this a current diagnosis for this admission?: Yes Plan: Improved; no gross hematuria in mi Recurrent secondary to Coumadin use. We will continue Mi catheter, flush as needed. Continue Flomax. Discussed with Naz Agudelo ([facility]); recommends starting Eliquis and observing in-house for recurrent hematuria of concern for ABLA. Ms. Agudelo will arrange for follow up appointment to schedule cystoscopy for further evaluation. (5) Bipolar 1 disorder, depressed, mild Is this a current diagnosis for this admission?: No Plan: Stable at this time. Patient is not on mood stabilizers. Supportive care. (6) Hyponatremia Is this a current diagnosis for this admission?: Yes Plan: Resolved. Likely fluid overload secondary to SPENSER. Have reviewed his medications for side effect. IV fluids are discontinued. We will continue to monitor daily chemistries. (7) Anemia Is this a current diagnosis for this admission?: Yes Plan: Stable; Hgb 9.9 today Acute blood loss anemia. Multifactorial secondary to elevated INR and hematuria. Hemoglobin precipitously dropped 9.9-> 7.6; now s/p 2 UPRBC Urinalysis positive for blood. Occult stool is negative. Chest x-ray reveals left side pleural effusion. CT abdomen pelvis is negative for acute findings or intra abdominal bleeding. Skin evaluation done; no ecchymosis or hematomas found. We will monitor daily CBCs. (8) Left ventricular thrombus Is this a current diagnosis for this admission?: Yes Plan: Seen on echocardiogram this admission. Discussed w/ Dr. Pickett; recommends starting renally dosed Eliquis. Started Eliquis 2.5 BID today - Time Time Spent with patient: 15-24 minutes Medications reviewed and adjusted accordingly: Yes Anticipated discharge: SNF Within: within 48 hours
[2019-02-28] MEDS: FUROSEMIDE 20 MG TABLET PO SCH (15:29)
[2019-02-28] MEDS: TAMSULOSIN HCL 0.4 MG CAP.SR.24H PO SCH (17:53)
--- NOTE | 2019-02-28 20:32 | Progress Note ---
Provider Note Provider Note: CARDIOLOGY PROGRESS NOTE by Dr. Lilly Rojas on 02/28/2019. SUBJECTIVE: The patient denies any chest pain or discomfort. There is no further hematuria. There is no bleeding from any site at present. There is no TIA CVA symptoms. There is no peripheral embolization. The patient denies any palpitations. There is no firing of his AICD. There is no PND orthopnea or leg edema. Patient denies any shortness of breath. There is no TIA CVA symptoms. The patient did receive 1 dose of Eliquis, and there is been no bleeding complications so far. PHYSICAL EXAMINATION: On examination the patient appears to be chronically ill. But in no acute distress. Selected Entries 02/28/19 17:07 Temperature 98.6 F Temperature Oral Source Pulse Rate 72 Respiratory 20 Rate Blood Pressure 109/59 L Blood Pressure 75 Mean BP Location Right Arm BP Position Sitting O2 Sat by Pulse 97 Oximetry Oxygen Delivery Room Air Method HEAD: Is atraumatic normocephalic. EYES: Pupils are equal round regular reactive to light and accommodation. External ocular movements are normal. There is no conjunctival pallor. There is no scleral icterus. ENT: Is negative NECK: Is supple. There is no JVD. Carotids are equal there is no bruit. There is no lymphadenopathy. There is no goiter there is no accessory muscles of respiration use. Trachea central. LUNGS: Is clear to auscultation percussion, without any rhonchi rales wheezing. There is a pacemaker battery/generator the left infraclavicular region. HEART: S1-S2 is heard. There is no S3 gallop. There is no S4 gallop. There is murmur of mitral regurgitation present. There is no rub. ABDOMEN: Soft. Nontender. There is no hepatospleno megaly. Bowel sounds are well heard. EXTREMITIES: Femorals are slightly diminished. There is no femoral bruits. Leg pulses are diminished. There is no pedal edema. There is no DVT or cellulitis. There is no calf tenderness. 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 PSYCHIATRIC: At present the patient does not appear to be agitated or anxious. His judgment and insight seem to be intact. Labs- All tests 24 hr 02/28/19 02/28/19 04:28 04:28 WBC 10.3 RBC 3.38 L Hgb 9.9 L Hct 28.7 L MCV 85 MCH 29.2 MCHC 34.4 RDW 16.1 H Plt Count 127 L Sodium 135.5 L Potassium 4.6 Chloride 105 Carbon Dioxide 26 Anion Gap 5 BUN 22 H Creatinine 1.11 Est GFR ( Amer) > 60 Est GFR (Non-Af Amer) > 60 Glucose 102 Calcium 8.4 Abdomen/Pelvis CT 02/26/19 00:00 IMPRESSION: NO SIGNIFICANT OR ACUTE PROCESS IN THE ABDOMEN OR PELVIS. Chest X-Ray 02/26/19 00:00 IMPRESSION: Cardiomegaly without pulmonary edema. Left pleural effusion. Cannot exclude left lower lobe pneumonia. IMPRESSION/RECOMMENDATION: 1. Coumadin toxicity with severely elevated INR. At present INR back to baseline. At present no evidence of bleeding. 2. Hematuria: Seems to resolved. 3. Acute renal insufficiency: Resolved patient's GFR is back to normal. 4. History of old left ventricular apical clot, with also evidence of "smoke" in the left ventricle which is a precursor of thrombus. In view of this in spite of the patient being slightly high risk for bleeding complication would strongly recommend starting the patient on Eliquis 2.5 mg p.o. every 12 hours and observe the patient closely and monitor for any bleeding. This has been discussed with the patient he understands. 5 coronary artery disease: History of myocardial infarction in the past. No anginal symptoms. No evidence of [place] this admission. 6. [id number]: Mixed ischemic and dilated cardiomyopathy. 7. AICD: No firing of the AICD. The patient states that the AICD was last checked in August 2018. 8. Hypertension: Well-controlled. Continue current medications. 9. Bipolar disorder: Appears to be stable in remission Medications reviewed. Medications adjusted. Management plan discussed with the revision of the case. Medical decision making is of high complexity. 40 minutes spent on this patient more than 50% of time spent in direct patient care. The patient is a full code. The patient's son is his surrogate healthcare decision maker. Will follow.
[2019-02-28] MEDS: ATORVASTATIN CALCIUM 10 MG TABLET PO SCH (22:47)
[2019-03-01 04:32] LABS: HEMATOCRIT 29.6 % (37.9-51.0); HEMOGLOBIN 10.1 g/dL (13.5-17.0); MEAN CORPUSCULAR HEMOGLOBIN 29.2 pg (27.0-33.4); MEAN CORPUSCULAR HGB CONC 34.1 g/dL (32.0-36.0); MEAN CORPUSCULAR VOLUME 86 fl (80-97); PLATELET COUNT 135 10^3/uL (150-450); RED BLOOD COUNT 3.45 10^6/uL (4.35-5.55)
[2019-03-01 04:55] LABS: BLOOD UREA NITROGEN 20 mg/dL (7-20); CALCIUM 8.3 mg/dL (8.4-10.2); GLUCOSE 104 mg/dL (75-110); POTASSIUM 4.5 mmol/L (3.6-5.0)
[2019-03-01 05:01] LABS: ANION GAP 5 (5-19); CARBON DIOXIDE 26 mmol/L (22-30); CHLORIDE 104 mmol/L (98-107); SODIUM 135.3 mmol/L (137-145)
[2019-03-01] MEDS: PANTOPRAZOLE SODIUM 40 MG TABLET.DR PO SCH ×2 (05:33→18:35)
[2019-03-01] MEDS: MAGNESIUM OXIDE 400 MG TABLET PO SCH ×3 (09:28→18:35)
[2019-03-01] MEDS: APIXABAN 2.5 MG TABLET PO SCH ×2 (09:28→18:35)
[2019-03-01] MEDS: FUROSEMIDE 20 MG TABLET PO SCH (09:29)
[2019-03-01] MEDS: CARVEDILOL 12.5 MG TABLET PO SCH ×2 (09:30→22:53)
[2019-03-01] MEDS: CYCLOSPORINE 0.05% OPH EMULSIO 0.4 ML DROPERETTE OU SCH ×2 (09:35→22:53)
--- NOTE | 2019-03-01 16:18 | PDOC PROGRESS REPORT ---
Subjective Progress Note for:: 03/01/19 Subjective:: This is 73 years old male patient was past medical history of hypertension, hyperlipidemia, history of myocardial infarction and coronary artery disease and status post pacemaker placement presented with chief complaint of "tea colored urine" and found to have supratherapeutic INR related to chronic anticoagulation. Patient was seen on morning rounds. He is found sitting up to the recliner comfortably on room air; does ambulate room independently. He reports that he is feeling well today and has no new complaints. Weakness is improved and dyspnea has resolved; has been able to ambulate on room air w/ walker. He further denies fever, chills, chest pain, palpitations, orthopnea, cough, nausea, vomiting, diarrhea, and peripheral edema. He reports a good appetite. He has no questions or concerns at this time. No concerns per nursing. Reason For Visit: COUMADIN TOXICITY Physical Exam Vital Signs: Temp Pulse Resp BP Pulse Ox 97.4 F 36 L 24 H 98/52 L 100 03/01/19 11:29 03/01/19 11:29 03/01/19 11:29 03/01/19 11:29 03/01/19 11:29 Intake & Output 02/28/19 03/01/19 03/02/19 06:59 06:59 06:59 Intake Total 1220 3090 840 Output Total 3570 4150 800 Balance -2350 -1060 40 Weight 70.6 kg 70.6 kg General appearance: PRESENT: no acute distress, well-developed, well-nourished Head exam: PRESENT: atraumatic, normocephalic Eye exam: PRESENT: conjunctiva pink, EOMI, PERRLA. ABSENT: scleral icterus Ear exam: PRESENT: normal external ear exam Mouth exam: PRESENT: moist, tongue midline Neck exam: ABSENT: carotid bruit, JVD, lymphadenopathy, thyromegaly Respiratory exam: PRESENT: clear to auscultation [place], symmetrical, unlabored. ABSENT: rales, rhonchi, wheezes Cardiovascular exam: PRESENT: RRR. ABSENT: diastolic murmur, rubs, systolic murmur Pulses: PRESENT: normal dorsalis pedis pul Vascular exam: PRESENT: normal capillary refill GI/Abdominal exam: PRESENT: normal bowel sounds, soft. ABSENT: distended, guarding, mass, organolmegaly, rebound, tenderness Rectal exam: PRESENT: deferred Gentrourinary exam: PRESENT: indwelling catheter - No gross hematuria present Extremities exam: PRESENT: full ROM. ABSENT: calf tenderness, clubbing, pedal edema Musculoskeletal exam: PRESENT: ambulatory - With front wheel walker Neurological exam: PRESENT: alert, awake, oriented to person, oriented to place, oriented to time, oriented to situation, CN II-XII grossly intact. ABSENT: motor sensory deficit Psychiatric exam: PRESENT: appropriate affect, normal mood. ABSENT: homicidal ideation, suicidal ideation Skin exam: PRESENT: dry, intact, warm. ABSENT: cyanosis, rash Results Laboratory Results: 03/01/19 04:23 03/01/19 04:23 03/01/19 03/01/19 04:23 04:23 WBC 10.0 RBC 3.45 L Hgb 10.1 L Hct 29.6 L MCV 86 MCH 29.2 MCHC 34.1 RDW 16.0 H Plt Count 135 L Sodium 135.3 L Potassium 4.5 Chloride 104 Carbon Dioxide 26 Anion Gap 5 BUN 20 Creatinine 1.03 Est GFR ( Amer) > 60 Est GFR (Non-Af Amer) > 60 Glucose 104 Calcium 8.3 L 02/19/19 02/19/19 02/19/19 10:55 10:55 17:12 Creatine Kinase 206 H 136 CK-MB (CK-2) 1.48 Troponin I 0.022 NT-Pro-B Natriuret Pep 02/19/19 02/20/19 02/20/19 17:12 01:07 01:07 Creatine Kinase 109 CK-MB (CK-2) 1.05 0.79 Troponin I 0.023 0.025 NT-Pro-B Natriuret Pep 02/20/19 02/24/19 05:18 06:06 Creatine Kinase 37 L CK-MB (CK-2) Troponin I NT-Pro-B Natriuret Pep 5890 H Impressions: Abdomen/Pelvis CT 02/26/19 00:00 IMPRESSION: NO SIGNIFICANT OR ACUTE PROCESS IN THE ABDOMEN OR PELVIS. Chest X-Ray 02/26/19 00:00 IMPRESSION: Cardiomegaly without pulmonary edema. Left pleural effusion. Cannot exclude left lower lobe pneumonia. Assessment and Plan - Diagnosis (1) Acute kidney injury Is this a current diagnosis for this admission?: Yes Plan: Resolved Postobstructive; Post void bladder scan >900 ml IV fluids have been discontinued. Continue Mi catheter Continue to avoid nephrotoxic medications as able. Continue Flomax. Daily chemistries. Follow up with Urology as outpatient. (2) Coronary artery disease Qualifiers: Coronary Disease-Associated Artery/Lesion type: [place] artery Is this a current diagnosis for this admission?: Yes Plan: No anginal symptoms Continue low-dose atorvastatin. Continue home dose carvedilol. Cardiology has been consulted; appreciate Dr. Rojas's assistance. (3) Coumadin toxicity Is this a current diagnosis for this admission?: Yes Plan: Resolved. Coumadin was placed on hold. He has received 2 units fresh frozen plasma. Recieved Vit K 5mg p.o. x 1 INR last check 1.64. Dr. Rojas has been consulted to assist with determining need for continued chronic anticoagulation. Per Dr. Rojas, patient was on chronic anticoagulation due to LV clot. Echocardiogram this admission does show chronic appearing LV clot with "smoke" sign. Discussed with cardiology; recommends renally dosed Eliquis. (4) Hematuria Is this a current diagnosis for this admission?: Yes Plan: Improved; no gross hematuria in mi following resumption of Eliquis yesterday Recurrent secondary to Coumadin use. We will continue Mi catheter, flush as needed. Continue Flomax. Discussed with Naz Agudelo ([facility]); recommends starting Eliquis and observing in-house for recurrent hematuria of concern for ABLA. Ms. Agudelo will arrange for follow up appointment to schedule cystoscopy for further evaluation. (5) Bipolar 1 disorder, depressed, mild Is this a current diagnosis for this admission?: No Plan: Stable at this time. Patient is not on mood stabilizers. Supportive care. (6) Hyponatremia Is this a current diagnosis for this admission?: Yes Plan: Stable; not clinically significant at this time (135.3) Likely fluid overload secondary to SPENSER. Have reviewed his medications for side effect. IV fluids are discontinued. We will continue to monitor daily chemistries. (7) Anemia Is this a current diagnosis for this admission?: Yes Plan: Stable; Hgb 10.1 today Acute blood loss anemia. Multifactorial secondary to elevated INR and hematuria. Hemoglobin precipitously dropped 9.9-> 7.6; now s/p 2 UPRBC Urinalysis positive for blood. Occult stool is negative. Chest x-ray reveals left side pleural effusion. CT abdomen pelvis is negative for acute findings or intra abdominal bleeding. Skin evaluation done; no ecchymosis or hematomas found. We will monitor daily CBCs. (8) Left ventricular thrombus Is this a current diagnosis for this admission?: Yes Plan: Seen on echocardiogram this admission. Discussed w/ Dr. Pickett; recommends starting renally dosed Eliquis. Continue Eliquis 2.5 BID - Time Time Spent with patient: 15-24 minutes Medications reviewed and adjusted accordingly: Yes Anticipated discharge: SNF Within: within 24 hours
[2019-03-01] MEDS: TAMSULOSIN HCL 0.4 MG CAP.SR.24H PO SCH (18:35)
--- NOTE | 2019-03-01 21:41 | Progress Note ---
Provider Note Provider Note: CARDIOLOGY PROGRESS NOTE by Dr. Lilly Rojas on 03/01/2019. SUBJECTIVE: The patient has had no further hematuria. He denies any chest pain or discomfort. There is no palpitations. There is no firing of his AICD. There is no TIA CVA symptoms. There is no pedal edema. There is no PND orthopnea. There is no TIA CVA symptoms. There is no symptoms or signs of peripheral embolization. PHYSICAL EXAMINATION: The patient appears to be chronically ill but in no acute distress. Selected Entries 03/01/19 15:55 Temperature 98.4 F Temperature Oral Source Pulse Rate 67 Respiratory 20 Rate Blood Pressure 101/61 Blood Pressure 74 Mean BP Location Left Arm BP Position Sitting O2 Sat by Pulse 100 Oximetry Oxygen Delivery Room Air Method HEAD: Is atraumatic normocephalic. EYES: Pupils are equal round regular reactive to light and accommodation. External ocular movements are normal. There is no conjunctival pallor. There is no scleral icterus. ENT: Is negative NECK: Is supple. There is no JVD. Carotids are equal there is no bruit. There is no lymphadenopathy. There is no goiter there is no accessory muscles of respiration use. Trachea central. LUNGS: Is clear to auscultation percussion, without any rhonchi rales wheezing. There is a pacemaker battery/generator the left infraclavicular region. HEART: S1-S2 is heard. There is no S3 gallop. There is no S4 gallop. There is murmur of mitral regurgitation present. There is no rub. ABDOMEN: Soft. Nontender. There is no hepatospleno megaly. Bowel sounds are well heard. EXTREMITIES: Femorals are slightly diminished. There is no femoral bruits. Leg pulses are diminished. There is no pedal edema. There is no DVT or cellulitis. There is no calf tenderness. ASPHALT PATCHER: The patient is conscious awake alert oriented x3 with no focal deficit. PSYCHIATRIC: At present the patient does not appear to be agitated or anxious. His judgment and insight seem to be intact. Labs- All tests 24 hr 03/01/19 03/01/19 04:23 04:23 WBC 10.0 RBC 3.45 L Hgb 10.1 L Hct 29.6 L MCV 86 MCH 29.2 MCHC 34.1 RDW 16.0 H Plt Count 135 L Sodium 135.3 L Potassium 4.5 Chloride 104 Carbon Dioxide 26 Anion Gap 5 BUN 20 Creatinine 1.03 Est GFR ( Amer) > 60 Est GFR (Non-Af Amer) > 60 Glucose 104 Calcium 8.3 L Abdomen/Pelvis CT 02/26/19 00:00 IMPRESSION: NO SIGNIFICANT OR ACUTE PROCESS IN THE ABDOMEN OR PELVIS. Chest X-Ray 02/26/19 00:00 IMPRESSION: Cardiomegaly without pulmonary edema. Left pleural effusion. Cannot exclude left lower lobe pneumonia. IMPRESSION/RECOMMENDATION: 1. Coumadin toxicity with severely elevated INR. At present INR back to baseline. At present no evidence of bleeding. 2. Hematuria: Seems to resolved. No recurrence on Eliquis. 3. Acute renal insufficiency: Resolved patient's GFR is back to normal. 4. History of old left ventricular apical clot, with also evidence of "smoke" in the left ventricle which is a precursor of thrombus. In view of this in spite of the patient being slightly high risk for bleeding complication would strongly recommend starting the patient on Eliquis 2.5 mg p.o. every 12 hours and observe the patient closely and monitor for any bleeding. This has been discussed with the patient he understands. 5 coronary artery disease: History of myocardial infarction in the past. No anginal symptoms. No evidence of [place] this admission. 6. [id number]: Mixed ischemic and dilated cardiomyopathy. 7. AICD: No firing of the AICD. The patient states that the AICD was last checked in August 2018. 8. Hypertension: Well-controlled. Continue current medications. 9. Bipolar disorder: Appears to be stable in remission. Medications reviewed. Management plan discussed with the attending physician on the case. Medical decision making is of moderate complexity. 40 minutes spent on this patient with more than 50% of time spent on direct patient care. Also chest x-ray was ordered as a follow-up since the report on 02/26/2019 stated that pneumonia could not be excluded. Clinically the patient does not and does not have pneumonia.
[2019-03-01] MEDS: ATORVASTATIN CALCIUM 10 MG TABLET PO SCH (22:53)
[2019-03-02 06:20] LABS: HEMATOCRIT 33.3 % (37.9-51.0); MEAN CORPUSCULAR HEMOGLOBIN 28.5 pg (27.0-33.4); MEAN CORPUSCULAR HGB CONC 33.2 g/dL (32.0-36.0); MEAN CORPUSCULAR VOLUME 86 fl (80-97); PLATELET COUNT 158 10^3/uL (150-450); RED BLOOD COUNT 3.88 10^6/uL (4.35-5.55); RED CELL DISTRIBUTION WIDTH 15.7 % (11.5-14.0); WHITE BLOOD COUNT 12.6 10^3/uL (4.0-10.5)
[2019-03-02] MEDS: PANTOPRAZOLE SODIUM 40 MG TABLET.DR PO SCH (06:29)
--- NOTE | 2019-03-02 08:19 | RADIOLOGY REPORT (SQ) ---
EXAM DESCRIPTION: CHEST SINGLE VIEW COMPLETED DATE/TIME: 03/02/2019 8:02 am REASON FOR STUDY: Pneumonia COMPARISON: Chest films 04/09/2014, 02/26/2019 EXAM PARAMETERS: NUMBER OF VIEWS: One view. TECHNIQUE: Single frontal radiographic view of the chest acquired. RADIATION DOSE: NA LIMITATIONS: None. FINDINGS: LUNGS AND PLEURA: Trace left pleural fluid unchanged from 02/26/2019. Minimal left basilar atelectasis versus pneumonia unchanged from 02/26/2019. Right lung well inflated and clear. No right pleural effusion. No right or left pneumothorax MEDIASTINUM AND HILAR STRUCTURES: No masses. Contour normal. HEART AND VASCULAR STRUCTURES: Stable moderate cardiomegaly BONES: No acute findings. HARDWARE: Unchanged pacemaker OTHER: No other significant finding. IMPRESSION: Persistent minimal left basilar atelectasis and trace pleural fluid TECHNICAL DOCUMENTATION: JOB ID: [id number] [employer]- All Rights Reserved Reading location - IP/workstation name: [email or web address]
[2019-03-02 09:17] LABS: APPEARANCE,URINE CLOUDY; BILIRUBIN,URINE NEGATIVE (NEGATIVE); COLOR,URINE YELLOW; GLUCOSE, URINE NEGATIVE (NEGATIVE); KETONES,URINE NEGATIVE (NEGATIVE); LEUKOCYTE ESTERASE,URINE LARGE (NEGATIVE); NITRITE,URINE NEGATIVE (NEGATIVE); PROTEIN,URINE 100 mg/dL (NEGATIVE); UROBILINOGEN,URINE NEGATIVE mg/dL (<2.0)
[2019-03-02 09:23] LABS: URINE SPECIFIC GRAVITY 1.008
[2019-03-02] MEDS: FUROSEMIDE 20 MG TABLET PO SCH (09:24)
[2019-03-02] MEDS: MAGNESIUM OXIDE 400 MG TABLET PO SCH (09:25)
[2019-03-02] MEDS: CARVEDILOL 12.5 MG TABLET PO SCH (09:25)
[2019-03-02] MEDS: APIXABAN 2.5 MG TABLET PO SCH (09:25)
[2019-03-02] MEDS: CYCLOSPORINE 0.05% OPH EMULSIO 0.4 ML DROPERETTE OU SCH (09:27)
[2019-03-02] MEDS ORDERED: CIPROFLOXACIN HCL 500 MG TABLET PO SCH (11:00)
[2019-03-02 12:10] VITALS: BP 92/52
--- NOTE | 2019-03-02 12:13 | PDOC TRANSFER SUMMARY ---
General - Admit/Disc Date/PCP Admission Date/Primary Care Provider: 02/19/19 16:39 WHITNEY ASHLEY MD Discharge Date: 03/02/19 - Discharge Diagnosis (1) Acute kidney injury Is this a current diagnosis for this admission?: Yes Summary: Resolved Postobstructive secondary to gross hematuria; Post void bladder scan >900 ml Patient was initially provided IVF. Mi catheter was placed w/ immediate 3.6L output and subsequent resolution of SPENSER. Patient has been started on Flomax. He is to retain mi catheter until follow up with [facility]. (2) Coronary artery disease Is this a current diagnosis for this admission?: Yes Summary: No anginal symptoms Continue low-dose atorvastatin and carvedilol. Started on Eliquis. Follow up with established estate administrator, Dr. Pickett, within 4-6 weeks or sooner as needed. (3) Coumadin toxicity Is this a current diagnosis for this admission?: Yes Summary: Resolved; coumadin is discontinued. He has received 2 units fresh frozen plasma. Recieved Vit K 5mg p.o. x 1 INR last check 1.64. (4) Hematuria Is this a current diagnosis for this admission?: Yes Summary: Improved; no gross hematuria in mi following resumption of Eliquis yesterday Recurrent secondary to Coumadin use. Continue Mi catheter, flush as needed. Continue Flomax. Discussed with Naz Agudelo ([facility]); follow up within 1 week with plans to schedule cystoscopy for further evaluation. (5) Bipolar 1 disorder, depressed, mild Is this a current diagnosis for this admission?: No Summary: Stable at this time. Patient is not on mood stabilizers. Supportive care (6) Hyponatremia Is this a current diagnosis for this admission?: Yes Summary: Stable; not clinically significant at this time (135.3) (7) Anemia Is this a current diagnosis for this admission?: Yes Summary: Stable; Hgb 11 today Acute blood loss anemia is multifactorial secondary to elevated INR and hematuria. Now s/p 2 UPRBC Urinalysis positive for blood. Occult stool is negative. Chest x-ray reveals left side pleural effusion. CT abdomen pelvis is negative for acute findings or intra abdominal bleeding. Skin evaluation done; no ecchymosis or hematomas found. Discussed w/ Urology and Cardiology. Once gross hematuria had resolved patient was restarted on Eliquis 2.5 mg BID. He was observed for an additional 2 days w/o reoccurrence of his hematuria/clots/ Hgb is trending up and vital sings are stable. Recommend monitoring for recurrent hematuria and follow up CBC in 5-7 days. (8) Left ventricular thrombus Is this a current diagnosis for this admission?: Yes Summary: Seen on echocardiogram this admission. Discussed w/ Dr. Pickett; recommends renally dosed Eliquis. Continue Eliquis 2.5 mg BID (9) UTI (urinary tract infection) Is this a current diagnosis for this admission?: Yes Summary: Urinalysis is positive for UTI. Urine culture is pending. Mi catheter replaced today. Patient is empirically placed on p.o. Cipro. To follow up with Urology within 1 week. - Additional Information Resuscitation Status: Full Code Discharge Diet: Cardiac Discharge Activity: Activity As Tolerated, Balance Activity w/Rest, Supervised Activity Prescriptions: Apixaban [Eliquis 2.5 mg Tablet] 2.5 mg PO BID #60 tablet Ciprofloxacin HCl [Cipro 500 mg Tablet] 500 mg PO Q12 #14 tablet Tamsulosin HCl [Flomax 0.4 mg Cap.sr] 0.4 mg PO PCSUPPER #30 cap.sr.24h Home Medications: Atorvastatin Calcium [Lipitor 10 mg Tablet] 5 mg PO QHS 02/19/19 Carvedilol [Coreg 25 mg Tablet] 25 mg PO Q12 02/19/19 Apixaban [Eliquis 2.5 mg Tablet] 2.5 mg PO BID #60 tablet 03/02/19 Ciprofloxacin HCl [Cipro 500 mg Tablet] 500 mg PO Q12 #14 tablet 03/02/19 Cyclosporine 0.05% Oph Emulsio [Restasis 0.05% Oph Emulsion Pf 0.4 ml] 1 drop OU Q12 droperette 03/02/19 Tamsulosin HCl [Flomax 0.4 mg Cap.sr] 0.4 mg PO PCSUPPER #30 cap.sr.24h 03/02/19 History of Present Illness Admission Date/PCP: 02/19/19 16:39 WHITNEY ASHLEY MD History of Present Illness: Per H&P by Dr. De Los Santos: MARANDA WINN is a 73 year old male with history of pacemaker as per him his heart muscle was damaged and pacemaker was placed, on warfarin 4 mg at home, history of RI twice came to the emergency room with complaints of passing tea colored urine for the last 3 to 4 days last night he started passing bright red-colored urine, also noticed to have bleed from the blood draw site on the right hand. Blood draw was done at his primary care physician yesterday and is continued to bleed from there and the PCP called him back told him they unable to make sure the INR and he was advised to come to the emergency room for further evaluation. He denies any passing blood in the stool. He denies any hematemesis. Denies any chest pains or palpitations. Last dose of warfarin was taken last night. Physical Exam Vital Signs: Temp Pulse Resp BP Pulse Ox 99.1 F 41 L 16 107/58 L 96 03/02/19 07:41 03/02/19 07:41 03/02/19 07:41 03/02/19 07:41 03/02/19 07:41 Intake & Output 03/01/19 03/02/19 03/03/19 06:59 06:59 06:59 Intake Total 3090 1680 Output Total 4150 4125 Balance -1060 -2445 Weight 70.6 kg 70.6 kg General appearance: PRESENT: no acute distress, well-developed, well-nourished Head exam: PRESENT: atraumatic, normocephalic Eye exam: PRESENT: conjunctiva pink, EOMI, PERRLA. ABSENT: scleral icterus Ear exam: PRESENT: normal external ear exam Mouth exam: PRESENT: moist, tongue midline Neck exam: ABSENT: carotid bruit, JVD, lymphadenopathy, thyromegaly Respiratory exam: PRESENT: clear to auscultation [place]. ABSENT: rales, rhonchi, wheezes Cardiovascular exam: PRESENT: RRR. ABSENT: diastolic murmur, rubs, systolic murmur Pulses: PRESENT: normal dorsalis pedis pul Vascular exam: PRESENT: normal capillary refill GI/Abdominal exam: PRESENT: normal bowel sounds, soft. ABSENT: distended, guarding, mass, organolmegaly, rebound, tenderness Rectal exam: PRESENT: deferred Gentrourinary exam: PRESENT: indwelling catheter Extremities exam: PRESENT: full ROM. ABSENT: calf tenderness, clubbing, pedal edema Musculoskeletal exam: PRESENT: ambulatory - w/ walker and min assist Neurological exam: PRESENT: alert, awake, oriented to person, oriented to place, oriented to time, oriented to situation, CN II-XII grossly intact. ABSENT: motor sensory deficit Psychiatric exam: PRESENT: appropriate affect, normal mood. ABSENT: homicidal ideation, suicidal ideation Skin exam: PRESENT: dry, intact, warm. ABSENT: cyanosis, rash Results Laboratory Results: 03/02/19 05:25 03/01/19 04:23 03/02/19 03/02/19 05:25 08:36 WBC 12.6 H RBC 3.88 L Hgb 11.0 L Hct 33.3 L MCV 86 MCH 28.5 MCHC 33.2 RDW 15.7 H Plt Count 158 Urine Color YELLOW Urine Appearance CLOUDY Urine pH 8.0 Ur Specific [place] 1.008 Urine Protein 100 H Urine Glucose (UA) NEGATIVE Urine Ketones NEGATIVE Urine Blood MODERATE H Urine Nitrite NEGATIVE Ur Leukocyte Esterase LARGE H Urine WBC (Auto) >182 Urine RBC (Auto) 24 02/19/19 02/19/19 02/19/19 10:55 10:55 17:12 Creatine Kinase 206 H 136 CK-MB (CK-2) 1.48 Troponin I 0.022 NT-Pro-B Natriuret Pep 02/19/19 02/20/19 02/20/19 17:12 01:07 01:07 Creatine Kinase 109 CK-MB (CK-2) 1.05 0.79 Troponin I 0.023 0.025 NT-Pro-B Natriuret Pep 02/20/19 02/24/19 05:18 06:06 Creatine Kinase 37 L CK-MB (CK-2) Troponin I NT-Pro-B Natriuret Pep 5890 H Impressions: Abdomen/Pelvis CT 02/26/19 00:00 IMPRESSION: NO SIGNIFICANT OR ACUTE PROCESS IN THE ABDOMEN OR PELVIS. Chest X-Ray 03/02/19 06:00 IMPRESSION: Persistent minimal left basilar atelectasis and trace pleural fluid Qualifiers - * PATIENT BEING DISCHARGED WITH ANY OF THE FOLLOWING DIAGNOSIS: No Acute Heart Failure - Is this a Heart Failure Patient?: Yes Documentation of LVEF assessment?: Yes LVEF < 40%?: Yes-if yes answer questions a through e a) Discharged on ACEI?: No, document contraindications Reason(s) not discharge on ACEI: Impaied/worsening renal function b) Discharges on ARB?: No-document contraindications Reason(s) not discharged on ARB: Impaired/worsening renal functions c) Discharged on ARNI?: No-Document Contraindications Reason(s) not discharged on ARNI: Impaired/worsening renal functions d) Discharged on evidence-based Beta adam(carvedilol, sustained release metoprolol succinate, or bisoprolol)?: Yes e) For LVEF <35%, discharged on Aldosterone antagonist?: No-document contraincations 3. Anticoagulant therapy for permanect/persistent/paraoxysmal Afib or Aflutter: Yes Plan Discharge Plan: Discharge to SNF for short term rehab. Follow up with PCP within 1 week. Follow up with Dr. Pickett within 4-6 weeks. Complete course of antibiotic therapy. Follow up with [facility] within 1 week. Time Spent: Greater than 30 Minutes
== END 2019-03-02 14:36 | DRG 813 ==
LOC: ER 10:07 → EH 16:39 → ICU 18:33 → 3S 02-23 18:30 → 4W 02-26 01:00 → 5 03-02 09:52
PROVIDERS: ADMIT Internal Medicine; ATTEND Internal Medicine
PROC: 30233K1 Transfusion of Nonautologous Frozen Plasma into Peripheral Vein, Percutaneous Approach (ICD-10-PCS; principal; 2019-02-19)
PROC: 30233N1 Transfusion of Nonautologous Red Blood Cells into Peripheral Vein, Percutaneous Approach (ICD-10-PCS; 2019-02-26)
DX: D68.32 Hemorrhagic disorder due to extrinsic circulating anticoagulants (principal); N17.9 Acute kidney failure, unspecified; E87.1 Hypo-osmolality and hyponatremia; D62 Acute posthemorrhagic anemia; N39.0 Urinary tract infection, site not specified; E87.6 Hypokalemia; Z88.2 Allergy status to sulfonamides; I25.2 Old myocardial infarction; I25.10 Atherosclerotic heart disease of native coronary artery without angina pectoris; E78.5 Hyperlipidemia, unspecified; I10 Essential (primary) hypertension; F31.9 Bipolar disorder, unspecified; T45.515A Adverse effect of anticoagulants, initial encounter; E83.42 Hypomagnesemia
CPT/HCPCS: 36415; 36430; 71045; 74176; 80048; 80053; 80061; 80076; 81001; 82040; 82272; 82550; 82553; 82962; 83036; 83735; 83880; 84443; 84484; 85025; 85027; 85610; 85730; 86850; 86900; 86901; 86920; 87086; 87088; 93005; 93010; 93306; 96372; 99284; J1940; J3430; J3475; J3490; J7030; P9016; P9017

== ENCOUNTER → 2019-05-05 | Outpatient (CLI) | payer MEDICARE ==
[2019-05-05 09:46] LABS: ABSOLUTE BASOPHILS # (AUTO) 0.1 10^3/uL (0.0-0.2); ABSOLUTE EOSINOPHILS # (AUTO) 0.1 10^3/uL (0.0-0.6); ABSOLUTE LYMPHOCYTES (AUTO) 1.3 10^3/uL (0.5-4.7); ABSOLUTE MONOCYTES (AUTO) 0.5 10^3/uL (0.1-1.4); ABSOLUTE NEUT (AUTO) 3.7 10^3/uL (1.7-8.2); BASOPHILS % (AUTO) 1.4 % (0-2); EOSINOPHILS % (AUTO) 2.4 % (0-6); HEMOGLOBIN 13.6 g/dL (13.5-17.0); LYMPHOCYTES % (AUTO) 22.7 % (13-45); MEAN CORPUSCULAR HEMOGLOBIN 28.4 pg (27.0-33.4); MEAN CORPUSCULAR HGB CONC 33.1 g/dL (32.0-36.0); MEAN CORPUSCULAR VOLUME 86 fl (80-97); MONOCYTES % (AUTO) 8.6 % (3-13); PLATELET COUNT 127 10^3/uL (150-450); RED BLOOD COUNT 4.78 10^6/uL (4.35-5.55); RED CELL DISTRIBUTION WIDTH 15.7 % (11.5-14.0); SEGMENTED NEUTROPHILS % (AUTO) 64.9 % (42-78); TOTAL CELLS COUNTED % (AUTO) 100 %; WHITE BLOOD COUNT 5.7 10^3/uL (4.0-10.5)
[2019-05-05 10:09] LABS: ALKALINE PHOSPHATASE 45 U/L (38-126); ANION GAP 7 (5-19); ASPARTATE AMINO TRANSFERASE 17 U/L (17-59); BILIRUBIN,DIRECT 0.1 mg/dL (0.0-0.4); BILIRUBIN,TOTAL 0.6 mg/dL (0.2-1.3); BLOOD UREA NITROGEN 13 mg/dL (7-20); CALCIUM 9.7 mg/dL (8.4-10.2); CARBON DIOXIDE 29 mmol/L (22-30); CHLORIDE 103 mmol/L (98-107); CHOLESTEROL 146.32 mg/dL (0-200); GLUCOSE 95 mg/dL (75-110); POTASSIUM 4.6 mmol/L (3.6-5.0); TOTAL PROTEIN 7.1 g/dL (6.3-8.2); TRIGLYCERIDES 74 mg/dL (<150)
[2019-05-05 10:20] LABS: DIRECT LDL 94 mg/dL (<100)
== END ==
LOC: OD 09:17
PROVIDERS: ATTEND Specialist
DX: I25.10 Atherosclerotic heart disease of native coronary artery without angina pectoris (principal); I10 Essential (primary) hypertension; I42.9 Cardiomyopathy, unspecified; E78.5 Hyperlipidemia, unspecified; I25.2 Old myocardial infarction; I44.7 Left bundle-branch block, unspecified; Z79.899 Other long term (current) drug therapy; Z95.810 Presence of automatic (implantable) cardiac defibrillator
CPT/HCPCS: 36415; 80048; 80061; 80076; 85025

== ENCOUNTER → 2019-09-29 | Outpatient (CLI) | payer MEDICARE ==
--- NOTE | 2019-09-30 16:42 | XCELERA REPORT ---
[address] [address] Lower Extremity Arterial Evaluation Name: MARANDA WINN Age: 74 yrs Gender: Male : 1945 Patient Status: Outpatient Patient Location: Study Date: 09/29/2019 10:20 AM Procedure: A color flow and duplex scan of the lower extremity arteries was performed on the left with velocity and waveform anaylsis. Reason For Study: LT LEG CLAUDICATION Ordering Physician: BLAIR PIÑA Performed By: Moriah Lr Measurements and Calculations Right Left BRIQUETTE MOLDER PSV 96.2 cm/sec Prox PFA PSV 54.6 cm/sec Prox Pop A PSV 42.4 cm/sec Dist Pop A PSV -50.0 cm/sec Prox DONAVON PSV 49.0 cm/sec Dist DONAVON PSV 61.5 cm/sec Prox SUPPORT CLERK PSV 51.5 cm/sec Dist SUPPORT CLERK PSV -71.1 cm/sec Prox Alex A -43.1 cm/sec PSV Aris Pedis PSV -59.7 44.9 cm/sec Right Side Arterial Evaluation Very limited spot study showing triphasic flow in the Dorsalis Pedis. Left Side Arterial Evaluation Normal velocity and triphasic waveforms noted from the Common Femoral artery to the infrageniculate vessels . Ankle Brachial index not done. Interpretation Summary No hemodynamically significant lesions in the left lower extremity only, on duplex imaging, at rest. : BLAIR PIÑA [place]
== END ==
LOC: SP 09:52
PROVIDERS: ATTEND Physician Assistant
DX: I73.9 Peripheral vascular disease, unspecified (principal)
CPT/HCPCS: 93926